=== PATIENT | male | born 1950 | race African-American/Black ===

== ENCOUNTER → 2020-06-10 13:38 | Outpatient (CLI) | payer MEDICARE, SELFPAY ==
--- NOTE | ~2020-06-10 | MR_ITS ---
EXAMINATION: MR lumbar spine wo con DATE: 06/10/2020 14:11 INDICATION: Low back pain. TECHNIQUE: Magnetic resonance imaging (MRI) of the lumbar spine was performed without intravenous con trast. Sequences included sagittal T2-weighted FSE, sagittal T2-weighted FS FSE, sagittal T1-weighted FSE, and axial T2-weighted FSE. COMPARISON: Lumbar spine MRI 03/21/2014 FINDINGS: There is 8 degrees levocurvature of lumbar spine. There is 3 mm retrolisthesis of L2 on L3, L3 on L4, L4 on L5, and L5 on S1. Vertebral body heights are normal. There is moderately decreased d isc height at L1-L2 and severely decreased disc height from L2-L3 through L5-S1. The distal spinal co rd signal intensity is normal. The conus medullaris is at T12-L1. The following disc levels are speci fically discussed: L1-L2: The disc is bulging and has an annular fissure. There is moderate bilateral facet joint osteoa rthritis. There is mild bilateral neural foraminal stenosis. There is mild central canal stenosis. L2-L3: The disc is bulging and has an annular fissure. There is severe bilateral facet joint osteoart hritis. There is moderate bilateral neural foraminal stenosis. There is mild central canal stenosis. L3-L4: The disc is bulging and has an annular fissure. There is severe bilateral facet joint osteoart hritis. There is moderate bilateral neural foraminal stenosis. There is mild central canal stenosis. L4-L5: The disc is bulging and has an annular fissure. There is mild right and severe left facet join t osteoarthritis. There is moderate bilateral neural foraminal stenosis. There is mild central canal stenosis. L5-S1: The disc is bulging and has an annular fissure. There is severe bilateral facet joint osteoart hritis. There is moderate bilateral neural foraminal stenosis. There is mild central canal stenosis. IMPRESSION: 1. Severe lumbar spondylosis, mildly worsened from 03/21/2014. Reviewed, dictated and finalized at location A. CH INSTRUCTOR
== END ==
PROVIDERS: PCP Internal Medicine; Visit Provider Orthopaedic Surgery
DX: M47.896 Other spondylosis, lumbar region (principal)
CPT/HCPCS: 72148

== ENCOUNTER 2022-01-01 14:57 | Emergency (ER) | payer MEDICARE, SELFPAY ==
--- NOTE | ~2022-01-01 | XR_ITS ---
EXAMINATION: XR chest 2V Exam Date/Time: 01/01/2022 16:08 CDT HISTORY: CHEST TIGHTNESS, FATIGUE, COUGH, HEADACHE X 2 DAYS Comparison: 01/22/2019. RESULT: Lines, tubes, and devices: Cervical fusion hardware. Lungs and pleura: Stable chronic mild peribronchial cuffing, scattered reticular nodular opacities. No focal consolidation Cardiomediastinal silhouette: Stable. Other: No acute osseous or upper abdominal finding. IMPRESSION: Pulmonary opacities may reflect senescent change and/or chronic respiratory bronchiolitis. Reviewed, dictated and finalized at location K. IMPRESSION: Pulmonary opacities may reflect senescent change and/or chronic respiratory bro nchiolitis.
[2022-01-01 15:14] VITALS: BP 189/93; PULSE 85; RESP 16; TEMP 36.8; O2SAT 98
--- NOTE | 2022-01-01 15:37 | ED.HA ---
HPI - Headache General Chief Complaint: Headache Stated Complaint: chest pain Time Seen by Provider: 01/01/22 15:37 Source: patient Mode of arrival: ambulatory Limitations: no limitations History of Present Illness HPI Narrative: The patient is a 71-year-old male with a history of hypertension, hyperlipidemia presenting to the emergency department for evaluation of headache, chest pain, general malaise. Patient states that he was diagnosed with COVID 3 weeks ago, did not require hospitalization with his illness. Patient reports mild frontal headache intermittently over the past week as well as pain in his chest when he takes a deep breath. He denies any current chest pain at the time of assessment. States pain has been ongoing over the past two weeks. He reports productive cough without hemoptysis. He denies current shortness of breath, wheezing. He denies leg swelling or calf pain. Patient takes a daily aspirin, denies other anticoagulation. He denies palpitations, pain in his jaw, shoulder, back. Patient did take a Tylenol for his headache pain which helped resolve his headache. States that he has felt generally unwell over the past week, thus prompting his visit here to the emergency department. Related Data Allergies Allergy/AdvReac Type Severity Reaction Status Date / Time iodine Allergy Unknown Rash Verified 01/01/22 16:34 codeine AdvReac Mild Nausea and Verified 01/01/22 16:34 Vomiting Review of Systems Review of Systems: CONSTITUTIONAL: Denies fever, chills, or sweats. EYES: Denies visual changes, redness, or discharge. ENT: Reports mild rhinorrhea, congestion, denies sore throat or otalgia CARDIOVASCULAR: Denies current chest pain, palpitations, or edema. RESPIRATORY: Reports productive cough without shortness of breath GASTROINTESTINAL: Denies abdominal pain, nausea, vomiting, or diarrhea. GENITOURINARY: Denies dysuria or hematuria. SKIN: Denies rash or itching. MUSCULOSKELETAL: Denies back pain, joint pain, or myalgia. NEUROLOGIC: Reports headache without numbness, or weakness. [facility] Social History Social History (Updated 01/01/22 @ 15:54 by Kaye Lopez MD) Smoking status: Never smoker Alcohol intake: current Alcohol use details: Social, rare Substance use: never Living arrangements: with family Gender identity (if verbalized by the patient): Male Exam Narrative: GENERAL: Awake, alert, conversant HEAD: Normocephalic, atraumatic. EYES: PERRLA and EOMI. ENT: Nares clear, no rhinorrhea or epistaxis. Mucous membranes moist. NECK: Supple. CHEST: No respiratory distress, breathing even and non labored HEART: Regular rate, sinus rhythm ABDOMEN:Non distended, non tender EXTREMITIES: Normal range of motion. No edema. SKIN: Warm, dry, no rash. NEURO:No focal deficits. Alert and oriented x3. Finger to nose intact bilaterally. EOMs intact without nystagmus. No facial droop/asymmetry noted bilaterally. Grimace intact. Intact sensation in face. Hearing intact bilaterally. Shoulder shrug intact. Strength 5/5 bilateral upper extremities. Strength 5/5 bilateral lower extremities. Ambulatory with a narrow base, steady gait, no ataxia. Course Vital Signs Vital signs: Vital Signs Temperature 36.8 C 01/01/22 15:14 Pulse Rate 85 01/01/22 15:14 Respiratory Rate 16 01/01/22 15:14 Blood Pressure 189/93 H 01/01/22 15:14 Pulse Oximetry 98 01/01/22 15:14 Oxygen Delivery Room Air 01/01/22 15:14 Temperature 36.8 C 01/01/22 15:14 Pulse Rate 85 01/01/22 15:14 Respiratory Rate 16 01/01/22 15:14 Blood Pressure 189/93 H 01/01/22 15:14 Pulse Oximetry 98 01/01/22 15:14 Oxygen Delivery Room Air 01/01/22 15:14 MDM - Headache MDM Narrative Medical decision making narrative: Patient presenting to the emergency for evaluation of headache, pleuritic chest pain without any chest pain at the time of assessment. Patient is hypertensive, and this did normalize while
--- NOTE | 2022-01-01 15:48 | ECG_ITS ---
Measurements Intervals [place] Rate: 71 P: TX: 0 QRS: 20 QRSD: 96 T: 19 QT: 373 QTc: 408 Interpretive Statements SINUS RHYTHM WITH FREQUENT PACS OTHERWISE WITHIN NORMAL LIMITS ABNORMAL RHYTHM ECG NO PREVIOUS ECG AVAILABLE FOR COMPARISON Electronically Signed On 01-02-2022 16:50:43 CDT by Davey Barreto M.D.
[2022-01-01 16:03] LABS: Basophils Absolute Auto 0.1 K/mm3 (0.0-0.1); Basophils Percent Auto 0.7 % (0.2-1.2); Eosinophils Absolute Auto 0.3 K/mm3 (0-0.3); Eosinophils Percent Auto 3.1 % (0-4.4); Hematocrit 42.4 % (42.0-52.0); Hemoglobin 14.2 g/dL (14.0-18.0); Immature Granulocyte Absolute 0.02 K/mm3 (0.00-0.031); Immature Granulocyte Percent A 0.2 % (0-0.5); Lymphocytes Absolute Auto 1.77 K/mm3 (0.9-3.2); Lymphocytes Percent Auto 19.3 % (18.3-44.2); Mean Corpuscular HGB Conc 33.5 g/dl (32-36); Mean Corpuscular Hemoglobin 30.1 pg (26-34); Mean Corpuscular Volume 89.8 fl (80-100); Mean Platelet Volume 11.3 fl (7.4-10.4); Monocytes Percent Auto 10.5 % (2.6-8.5); Neutrophils Absolute Auto 6.1 K/mm3 (1.3-6.7); Neutrophils Percent Auto 66.2 % (45.5-73.1); Platelet Count Result 201 k/mm3 (150-375); Red Blood Count 4.72 M/mm3 (4.6-6.20); Red Cell Distribution Width 13.9 % (11.5-14.5); White Blood Count 9.2 K/mm3 (4.5-10.0)
[2022-01-01 16:12] LABS: Anion Gap 10 mmol/L (8-16); Blood Urea Nitrogen 20 mg/dL (9-20); Calcium 9.2 mg/dL (8.4-10.2); Carbon Dioxide 26 mmol/L (22-30); Chloride 103 mmol/L (98-107); Estimated CRCL calculation 76 ml/min; Estimated Glomerular Filt Rate > 60; Glucose 93 mg/dL (65-110); Potassium 4.3 mmol/L (3.4-5.0); Sodium 139 mmol/L (137-145)
[2022-01-01 16:24] LABS: Troponin I < 0.012 ng/mL (0.000-0.034)
[2022-01-01 16:25] LABS: D Dimer 0.49 ug/mL (<0.48)
[2022-01-01 16:33] LABS: Appearance Urine Clear (Clear); Bilirubin Urine 1+ (Negative); Blood Urine Negative (Negative); Color Urine Yellow (Yellow); Glucose Urine UA Negative (Negative); Ketones Urine Negative (Negative); Leukocyte Esterase Ur Negative LEU/UL (Negative); Nitrate Urine Negative (Negative); Protein Urine Negative (Negative); Specific Grav Ur 1.025 (1.001-1.035); pH Urine 5.5 (5.0-9.0)
[2022-01-01] MEDS: diphenhydrAMINE HCl INJ 50 MG/ML VIAL 25 MG IV PUSH (16:35)
[2022-01-01] MEDS: ACETAMINOPHEN 500 MG TABLET 1000 MG PO (16:35)
[2022-01-01] MEDS: SODIUM CHLORIDE 0.9% IV 1,000 ML 999 ML IV CONT (16:42)
[2022-01-01 16:53] LABS: Mucus Urine Rare /lpf; RBC Urine 0-2 /hpf (0-2); WBC Urine 0-3 /hpf
[2022-01-01 17:00] LABS: Add Urine Microscopic? YES
[2022-01-01 17:51] VITALS: BP 167/94; PULSE 77; RESP 16; O2SAT 98
== END 2022-01-01 18:01 | disposition home or self-care (01) ==
PROVIDERS: Emergency Provider Emergency Medicine; PCP Internal Medicine
DX: G44.209 Tension-type headache, unspecified, not intractable (principal); Z86.16 Personal history of COVID-19; I49.1 Atrial premature depolarization
CPT/HCPCS: 36415; 71046; 80048; 81001; 84484; 85025; 85380; 93005; 96361; 96374; 96375; 99284; A9270; J1100; J1200; J7030

== ENCOUNTER 2023-04-04 00:57 | Day surgery (SDC) | payer MEDICARE, SELFPAY ==
[2023-03-16 13:44] VITALS: BMI 29.5
--- NOTE | 2023-04-02 10:01 | SUR.PREOP ---
Patient called regarding upcoming procedure. Patient did not answer- message left with arrival time.
--- NOTE | 2023-04-02 10:03 | SUR.PREOP ---
Patient called back. Reviewed preop instructions, appointment times, and procedure prep.
--- NOTE | 2023-04-03 16:31 | PM.HPGS ---
History of Present Illness History of Present Illness Consent: Risks, benefits, and alternatives have been discussed and questions answered. Patient agrees to proceed with procedure. Chief complaint: neoplasm screening Narrative: Radu Piedra is a 72 year old male referred for colon cancer screening. Review of Systems Review of Systems: All systems reviewed & are unremarkable except as noted in HPI and below PMFSH Social History Social History Smoking packs per day: 1 Smoking cigarettes per day: 20.0 Years smoked: 20 Smoking pack-years: 20.00 Smoking status: Former smoker Tobacco type: cigarettes Alcohol intake: current Drinks per week: 1 Alcohol use details: Social, rare Substance use: never Substance use type: does not use Living arrangements: with family Gender identity (if verbalized by the patient): Male Spiritual care concerns: No Meds Home Medications and Allergies Home Medications Medication Instructions Recorded Confirmed Type acetaminophen 500 mg capsule 500 mg PO Q6H PRN fever or pain 01/01/22 04/04/23 Rx #30 caps ibuprofen 400 mg tablet 400 mg PO TID PRN fever or pain 01/01/22 04/04/23 Rx days #30 tabs amlodipine 5 mg tablet 5 mg PO DAILY 03/16/23 04/04/23 History aspirin 325 mg capsule 325 mg PO DAILY 03/16/23 04/04/23 History atorvastatin 20 mg tablet 20 mg PO DAILY 03/16/23 04/04/23 History azilsartan medoxomil 80 mg tablet 80 mg PO DAILY 03/16/23 04/04/23 History (Edarbi) chlorthalidone 25 mg tablet 25 mg PO DAILY 03/16/23 04/04/23 History metoprolol tartrate 25 mg tablet 25 mg PO BID 03/16/23 04/04/23 History Allergies Allergy/AdvReac Type Severity Reaction Status Date / Time iodine Allergy Unknown Rash Verified 04/04/23 08:04 codeine AdvReac Mild Nausea and Verified 04/04/23 08:04 Vomiting Exam Resp: Auscultation: clear to auscultation bilaterally Cardio: Rate: regular rate Rhythm: regular rhythm GI: GI Palp: Yes Soft to palpation and No Tenderness to palpation present (GI) Assessment and Plan Assessment and plan (1) Colon cancer screening: Code(s): Z12.11 - Encounter for screening for malignant neoplasm of colon Status: Acute Assessment and Plan: Colonoscopy with possible biopsy or polypectomy or cautery or injection of substances.
[2023-04-04 08:07] VITALS: BP 146/71; PULSE 58; RESP 16; TEMP 36.9; O2SAT 99
[2023-04-04] MEDS: LACTATED RINGERS 1,000 ML 150 ML IV CONT (08:18)
--- NOTE | 2023-04-04 08:57 | WPDANESEPPF ---
Anes - Initial Pre Proc Eval Procedure: Operation Date: 04/04/23 09:30 Proposed Procedures p Screening Colonoscopy - Jono Childress MD Date/Time: 04/04/23 08:57 Surgeon: Jono Childress MD Pre Op Diagnosis: neoplasm screening Patient Data Age: 72 Gender: M Height: 1.93 m Weight: 107.5 kg Last Vital Signs Temp 98.5 F 04/04/23 08:07 Pulse 58 L 04/04/23 08:07 Resp 16 04/04/23 08:07 BP 146/71 H 04/04/23 08:07 Pulse Ox 99 04/04/23 08:07 O2 Del Method Room Air 04/04/23 08:07 Allergies Allergy/AdvReac Type Severity Reaction Status Date / Time iodine Allergy Unknown Rash Verified 04/04/23 08:04 codeine AdvReac Mild Nausea and Verified 04/04/23 08:04 Vomiting Home Medications Medication Instructions Recorded Confirmed Type acetaminophen 500 mg capsule 500 mg PO Q6H PRN fever or pain 01/01/22 04/04/23 Rx #30 caps ibuprofen 400 mg tablet 400 mg PO TID PRN fever or pain 01/01/22 04/04/23 Rx days #30 tabs amlodipine 5 mg tablet 5 mg PO DAILY 03/16/23 04/04/23 History aspirin 325 mg capsule 325 mg PO DAILY 03/16/23 04/04/23 History atorvastatin 20 mg tablet 20 mg PO DAILY 03/16/23 04/04/23 History azilsartan medoxomil 80 mg tablet 80 mg PO DAILY 03/16/23 04/04/23 History (Edarbi) chlorthalidone 25 mg tablet 25 mg PO DAILY 03/16/23 04/04/23 History metoprolol tartrate 25 mg tablet 25 mg PO BID 03/16/23 04/04/23 History Patient hx anesthesia problems: none Family hx anesthesia problems: none Results Review: All pre-operative results and documents have been reviewed as part of the pre-operative evaluation. [facility] Social History Social History Smoking packs per day: 1 Smoking cigarettes per day: 20.0 Years smoked: 20 Smoking pack-years: 20.00 Smoking status: Former smoker Tobacco type: cigarettes Alcohol intake: current Drinks per week: 1 Alcohol use details: Social, rare Substance use: never Substance use type: does not use Living arrangements: with family Gender identity (if verbalized by the patient): Male Spiritual care concerns: No Anes - Eval Final PreProcedure Day of Procedure 04/04/23 08:57 Patient weight: normal Heart: regular rate and rhythm Lungs: clear to auscultation Airway: Mallampati scale class II Neurological: alert and oriented Last oral intake: >/= 8 hours ASA classification: III Emergent: no Anesthetic plan: proceed Anesthesia type and monitoring: general GIVS and standard monitoring Results Review: All pre-operative results and documents have been reviewed as part of the pre-operative evaluation. Informed Consent: The patient's anesthetic plan and its attendant risks and benefits were discussed with the patient/family/POA. Questions were solicited and answers provided to the satisfaction of the patient/family/POA.
[2023-04-04 09:19] VITALS: BP 83/60; PULSE 64; RESP 16; O2SAT 95
[2023-04-04 09:29] VITALS: BP 120/64; PULSE 54; RESP 18; O2SAT 96
[2023-04-04 09:39] VITALS: BP 117/69; PULSE 56; RESP 18; O2SAT 100
== END 2023-04-04 09:54 | disposition home or self-care (01) ==
PROVIDERS: PCP Internal Medicine; Visit Provider Internal Medicine Gastroenterology
PROC: 0DJD8ZZ Inspection of Lower Intestinal Tract, Via Natural or Artificial Opening Endoscopic (ICD-10-PCS; CPT 45378; principal; 2023-04-04 09:30)
DX: Z12.11 Encounter for screening for malignant neoplasm of colon (principal); K57.30 Diverticulosis of large intestine without perforation or abscess without bleeding; K64.8 Other hemorrhoids; Z87.891 Personal history of nicotine dependence
CPT/HCPCS: G0121; J2704; J7120

== ENCOUNTER 2023-06-01 10:32 | Emergency (ER) | payer MEDICARE, SELFPAY ==
--- NOTE | ~2023-06-01 | XR_ITS ---
EXAMINATION: XR chest 2V 06/01/2023 12:30 INDICATION: Chest pain and cough PROCEDURE: 2 view chest COMPARISON: 01/01/2022 FINDINGS: The lungs are clear. The cardiomediastinal silhouette is within normal limits. There are no pleural effusions. There is no pneumothorax suspected. IMPRESSION: 1: NO ACUTE CARDIOPULMONARY DISEASE. Reviewed, dictated and finalized at location B. RER/GRADE CHECK
--- NOTE | 2023-06-01 10:34 | ECG_ITS ---
Measurements Intervals [place] Rate: 56 P: 44 MA: 178 QRS: 50 QRSD: 97 T: 56 QT: 397 QTc: 383 Interpretive Statements SINUS BRADYCARDIA INCOMPLETE RIGHT BUNDLE BRANCH BLOCK BORDERLINE ECG COMPARED TO ECG 01/01/2022 15:54:45 SINUS BRADYCARDIA NOW PRESENT Electronically Signed On 06-01-2023 15:58:21 [employer] by Serge Lozoya D.O.
[2023-06-01 10:39] VITALS: BP 144/84; PULSE 65; RESP 18; TEMP 36.6; O2SAT 99
[2023-06-01 10:54] LABS: Basophils Absolute Auto 0.1 K/mm3 (0.0-0.1); Basophils Percent Auto 0.8 % (0.2-1.2); Eosinophils Absolute Auto 0.3 K/mm3 (0-0.3); Eosinophils Percent Auto 5.6 % (0-4.4); Hematocrit 37.7 % (42.0-52.0); Hemoglobin 12.4 g/dL (14.0-18.0); Immature Granulocyte Absolute 0.01 K/mm3 (0.00-0.031); Immature Granulocyte Percent A 0.2 % (0-0.5); Lymphocytes Absolute Auto 1.65 K/mm3 (0.9-3.2); Lymphocytes Percent Auto 27.4 % (18.3-44.2); Mean Corpuscular HGB Conc 32.9 g/dl (32-36); Mean Corpuscular Volume 88.1 fl (80-100); Mean Platelet Volume 10.7 fl (7.4-10.4); Monocytes Absolute Auto 0.4 K/mm3 (0.1-0.6); Monocytes Percent Auto 6.3 % (2.6-8.5); Neutrophils Absolute Auto 3.6 K/mm3 (1.3-6.7); Neutrophils Percent Auto 59.7 % (45.5-73.1); Platelet Count Result 237 k/mm3 (150-375); Red Blood Count 4.28 M/mm3 (4.6-6.20); Red Cell Distribution Width 13.2 % (11.5-14.5)
--- NOTE | 2023-06-01 10:58 | ED.CHESTPAIN ---
HPI - Chest Pain General Chief Complaint: Chest Pain Stated Complaint: chest tightness, cough and stuffy head Time Seen by Provider: 06/01/23 10:48 Source: patient Mode of arrival: ambulatory Limitations: no limitations History of Present Illness HPI narrative: Radu is a 72-year-old male patient presenting to the clinic today with complaints chest tightness, cough, and stuffy head x1 week. He reports he went to [place] urgent care on Sunday and they diagnosed with bronchitis and gave him azithromycin. He reports that he is on the last day of azithromycin and his symptoms are not improving. He denies any chest pain but does state he has got some chest tightness, cough, and stuffiness. No known fever or chills. Related Data Home Medications Medication Instructions Recorded Confirmed amlodipine 5 mg tablet 5 mg PO DAILY 03/16/23 06/01/23 aspirin 325 mg capsule 325 mg PO DAILY 03/16/23 06/01/23 atorvastatin 20 mg tablet 20 mg PO DAILY 03/16/23 06/01/23 azilsartan medoxomil 80 mg tablet 80 mg PO DAILY 03/16/23 06/01/23 (Edarbi) chlorthalidone 25 mg tablet 25 mg PO DAILY 03/16/23 06/01/23 metoprolol tartrate 25 mg tablet 25 mg PO BID 03/16/23 06/01/23 Allergies Allergy/AdvReac Type Severity Reaction Status Date / Time iodine Allergy Unknown Rash Verified 06/01/23 11:18 codeine AdvReac Mild Nausea and Verified 06/01/23 11:18 Vomiting Review of Systems Review of Systems: Pertinent positives per HPI. Patient denies any fever, chills, rash, headache, visual changes, dizziness, runny nose, sore throat,chest pain, palpitations, nausea, vomiting, diarrhea, constipation, abdominal pain, or any urinary issues. [facility] Social History Social History Smoking packs per day: 1 Smoking cigarettes per day: 20.0 Years smoked: 20 Smoking pack-years: 20.00 Smoking status: Former smoker Tobacco type: cigarettes Alcohol intake: current Drinks per week: 1 Alcohol use details: Social, rare Substance use: never Substance use type: does not use Living arrangements: with family Gender identity (if verbalized by the patient): Male Spiritual care concerns: No Comments At the time of my signature, I reviewed and agree with the nursing past medical, surgical, social, and family history. There is no relevant family history pertinent to the patient complaint. Course Course Emergency Course: Portions of this record may have been created with voice recognition software. Vital Signs Vital signs: Vital Signs Temperature 36.6 C 06/01/23 10:39 Pulse Rate 65 06/01/23 10:39 Respiratory Rate 18 06/01/23 10:39 Blood Pressure 144/84 H 06/01/23 10:39 Pulse Oximetry 99 06/01/23 10:39 Oxygen Delivery Room Air 06/01/23 10:39 Temperature 36.6 C 06/01/23 10:39 Pulse Rate 60 06/01/23 14:28 Respiratory Rate 16 06/01/23 14:28 Blood Pressure 125/80 06/01/23 14:28 Pulse Oximetry 99 06/01/23 14:28 Oxygen Delivery Room Air 06/01/23 10:39 Vital signs reviewed MDM - Chest Pain MDM Narrative Medical decision making narrative: At the time of visit patient is resting comfortably on the exam table. Patient appears to be nontoxic. Labs: CBC shows white blood cell count 6, H and H is 12.4 and 37.7, platelet counts 237, anti coagulation studies are negative, chemistry shows sodium level 139, potassium of 4.4, chloride 106, carbon dioxide 24, BUN is 38 creatinine 1.5 with a GFR greater than 56, glucose is 167, alk phos 109, ALT is 26, AST 36, troponin is negative, lipase 67, COVID, flu, RSV testing was completed. RSV test was positive COVID and influenza were negative. Diagnostics: Chest x-ray shows no acute cardiopulmonary process. Plan: I suspect patient has RSV bronchitis. Patient also has some anemia and elevated BUN and creatinine. Recommend follow-up with his PCP this week for further evaluation. Will send in prescription
[2023-06-01 11:05] LABS: Prothrombin Time 13.3 Seconds (11.1-14.7)
[2023-06-01 11:10] VITALS: BP 126/83; PULSE 59; RESP 16; O2SAT 100
[2023-06-01 11:11] LABS: Alanine Aminotransferase 26 U/L (6-50); Albumin Level 3.9 g/dL (3.5-5.1); Alkaline Phosphatase 108 U/L (38-126); Anion Gap 9 mmol/L (8-16); Aspartate Amino Transferase 36 U/L (17-59); Bilirubin,Total 0.7 mg/dL (0.2-1.3); Blood Urea Nitrogen 38 mg/dL (9-20); Calcium 8.8 mg/dL (8.4-10.2); Carbon Dioxide 24 mmol/L (22-30); Chloride 106 mmol/L (98-107); Estimated CRCL calculation 51 ml/min; Estimated Glomerular Filt Rate 56; Glucose 167 mg/dL (65-110); Lipase 67 U/L (23-300); Potassium 4.4 mmol/L (3.4-5.0); Sodium 139 mmol/L (137-145)
[2023-06-01 11:22] LABS: Troponin I < 0.012 ng/mL (0.000-0.034)
[2023-06-01 12:00] LABS: Influenza A QL RT-PCR Negative (Negative); Influenza B QL RT-PCR Negative (Negative); RSV RNA, RT-PCR Positive (Negative); SARS-CoV-2 RNA PCR Negative (Negative)
[2023-06-01 14:28] VITALS: BP 125/80; PULSE 60; RESP 16; O2SAT 99
== END 2023-06-01 14:30 | disposition home or self-care (01) ==
PROVIDERS: Emergency Medicine; Emergency Provider Nurse Practitioner Family; PCP Internal Medicine
DX: J20.5 Acute bronchitis due to respiratory syncytial virus (principal); Z87.891 Personal history of nicotine dependence; Z79.82 Long term (current) use of aspirin; R00.1 Bradycardia, unspecified; I45.10 Unspecified right bundle-branch block
CPT/HCPCS: 36415; 71046; 80053; 83690; 84484; 85025; 85610; 85730; 87637; 93005; 99284

== ENCOUNTER 2024-07-15 13:28 | Outpatient (CLI) | payer MEDICARE, SELFPAY ==
--- NOTE | ~2024-07-15 | PE_ITS ---
EXAMINATION: PET_PETPSMAST_PT DATE: 07/15/2024 15:31 INDICATION: Prostate cancer. TECHNIQUE: 5.145 mCi of Ga-68 gozetotide was administered intravenously. Low dose computed tomography (CT) images were acquired from the base of the brain to the proximal thighs for attenuation correcti on and anatomic localization. Automated exposure control was employed. Dose-length product (DLP) was 1331 mGy-cm. Positron emission tomography (PET) images were acquired in the same distribution. COMPARISON: None FINDINGS: Head/neck: There are no pathologically enlarged lymph nodes. There are changes of anterior fusion pro cedure in cervical spine. Chest: There are pleural plaques bilaterally, which may be seen with asbestos exposure. There is mild atelectasis in lingula. No pleural effusion. The heart size is normal. There are coronary artery pipe cifications. No pericardial effusion. There is bilateral gynecomastia. Abdomen/pelvis/proximal thighs: The liver, gallbladder, spleen, pancreas, and right adrenal gland are normal. There is a 14 mm mass in left adrenal gland without increased activity, likely an adenoma in the absence of known malignancy other than prostate cancer. There are cysts in right kidney measurin g up to 2.8 cm. Left kidney is normal. There is diverticulosis of the colon without evidence of diver ticulitis. There are no dilated loops of bowel. The appendix is normal. There are no pathologically e nlarged lymph nodes. There is no free intraperitoneal fluid. The prostate is mildly enlarged. There i s increased activity in the prostate with maximum SUV of 8.0. There is a stent in right superficial f emoral artery. There is no osseous malignancy. IMPRESSION: 1. Mildly enlarged prostate with increased activity, consistent with primary malignancy. No evidence of metastatic disease. Reviewed, dictated and finalized at location B. IMPRESSION: 1. Mildly enlarged prostate with increased activity, consistent with primary ma lignancy. No evidence of metastatic disease.
--- OUTSIDE RECORDS SUMMARY | 2024-07-15 15:01 | XMS_ITS | Clinical Summary ---
Author Organization [facility] Address [address] [place] [id number] Care Team Providers Care Founder President And Ceo Name Role Phone Unavailable Primary Care Provider Unavailabl e Social History Tobacco Use Types Packs/Day Years Used Date Smoking Tobacco: Never Assessed Sex and Gender Information Value Date Recorded Sex Assigned at Not on file Legal Sex Male 6:36 PM CDT Gender Identity Not on file Sexual Orientation Not on file Last Filed Vital Signs Vital Sign Reading Time Taken Comments Blood Pressure 160/94 12/28/2016 3:24 PM CDT Pulse 73 12/28/2016 3:24 PM CDT Temperature - - Respiratory Rate - - Oxygen Saturation - - Inhaled Oxygen Concentration - - Weight 106.6 kg (235 lb) 04/20/2016 3:28 PM [employer] Height 193 cm (6' 4 ) 04/20/2016 3:28 PM [employer] Body Mass Index 28.61 04/20/2016 3:28 PM [employer] Plan of Treatment Upcoming Encounters Date Type Department Care Team (Late st Contact Info) Description 08/05/2024 10:00 AM CDT Office Visit [facility] [place] [address] [place] [address] Davey Fink, PAJenaC [address] [place] [address] Health Maintenance Due Date Last Done Comments Colorectal Cancer Screening Colonoscopy (10 Years) 1952 Hepatitis C 1970 Zoster Vaccines (1 of 2) 2002 Annual Medicare Wellness Visit 2017 Pneumococcal Vaccine: 65+ Ye ars (1 of 1 - PCV) 2017 COVID-19 Vaccine ( - 2023-2 5 season) 2024 Influenza Adult (#1) 2024 RSV Immunization or 60+ Years (1 - 1-dose 75+ series) 12/04/2027 DTaP, Tdap and Td Vaccines ( 2 - Td or Tdap) 07/18/2029 07/19/2019 Meningococcal B Vaccine Aged Out No l onger eligible based on patient's age to complete this topic Meningococcal Vaccine Aged Out No boby magdiel eligible based on patient's age to complete this topic RSV Immunizations Under 20 Months Aged Out No longer eligible based on patient's age to complete this topic Insurance
--- OUTSIDE RECORDS SUMMARY | 2024-07-15 15:01 | XMS_ITS | Referral Summary ---
Author Organization [facility] Address [address] [address] Care Team Providers Care Cement Mason Name Role Phone Nish Martin MD Primary Care Provider + [phone] Payam Stanton MD Unavailable [phone] Chela Heaton MD Unavailable [phone] Faby Rodriguez RN Unavailable [phone] Source Comments [facility],non-owned Affiliates and Associated Physician Practices is amultiple site organization consisting of ambulatory clinics and hospital sitesin [place], [place], [place] and [place]. This disclosure is being madepursuant to the Care Everywhere program and may not contain all information available regarding this patient. Last updated 18.[facility] Allergies Active Allergy Reactions Criticality Noted Date Comments Codeine Nausea and/or Vomiting 08/06/2013 Povidone Iodine Anaphylaxis High 09/09/2013 Latex Rash Low 08/06/2013 Etodolac 08/06/2013 Shellfish Allergy Anaphylaxis High 09/09/2013 Medications * Be aware that medications may not be up to date on this document. Alwaysverify current medications with the patient. Medication Sig Dispensed Refills Start Date End Date Status aspirin 325 MG tablet Act ronald valsartan (DIOVAN) 320 MG tablet Take 320 mg by mouth at bedtime. Active atorvastatin (LIPITOR) 20 MG tablet Take 20 mg by mouth at bedtime. Active hydrocodone-acetaminoph en (NORCO) 5-325 MG tablet Take 1 Tab by mouth every 4 hours as needed. 40 Tab 1 09/10/2013 Active methocarbamol (ROBAXIN) 750 MG tablet Take 1 Tab by mouth 4 times daily. 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 Cervical spondylosis without myelopathy 08/07/19 14 Social History Tobacco Use Types Packs/Day Years Used Date Smoking Tobacco: Former Cigarettes Q uit: 05/07/2006 Smokeless Tobacco: Never Alcohol Use Standard Drinks/Week Comments Yes 0 (1 standard drink = 0.6 oz pur e alcohol) 3 MONTHLY Sex and Gender Information Value Date Recorded Sex Assigned at Not on file Gender Identity Not on file Sexual Orientation Not on file Last Filed Vital Signs Vital Sign Reading Time Taken Comments Blood Pressure 138/82 09/10/2013 8:35 AM CDT Pulse 74 09/10/2013 8:35 AM CDT Temperature 36.6 C (97.8 F) 09/10/2013 8:35 AM CDT Respiratory Rate 18 09/10/2013 8:35 AM CDT Oxygen Saturation 99% 09/10/2013 8:35 AM CDT Inhaled Oxygen Concentration - - Weight 108.9 kg (240 lb) 04/06/2014 10:16 AM HOP GROWER Height 190.5 cm (6' 3 ) 04/06/2014 10:16 AM HOP GROWER Body Mass Index 30 04/06/2014 10:16 AM HOP GROWER Functional Status Functional Status Response Date of Assess ment Is person deaf or have serious hearing difficult y? No 09/09/2013 Is person blind or have serious difficulty seein g? No 09/09/2013 Does person have serious dif ficulty walking/climbing stairs? No 09/09/2013 Does person have difficulty dressing/bathing? No 09/09/2013 Does person have difficulty doing errands alone? No 09/09/2013 Cognitive Status Response Date of Assessm ent Does person have difficulty concentrating/remembering/making decisions? No 09/09/2013 Plan of Treatment Not on file Medical Devices Implanted Type Area Eye Specialist Device Identifier Shelf Expiration Date Model / Serial / Lot Dale Maradiaga Dbm Jar 2.0cc Implanted:Qty : 1 on 09/09/2013 by Vignesh Mendoza MD at [facility] N/A: Spine Cervical [employer] 01/28/2016 [id number] / / [id number] Space Peek 6 X 16 X 14mm Implanted:Qty : 1 on 09/09/2013 by Vignesh Mendoza MD at [facility] N/A: Spine Cervical [employer] 03/27/2021 [id number] / / [id number] Space Peek 6 X 16 X 14mm Implanted:Qty : 1 on 09/09/2013 by Vignesh Mendoza MD at [facility] N/A: Spine Cervical [employer] 04/15/2021 [id number] / / [id number] Space Peek 5 X 16 X 14mm Implanted:Qty : 1 on 09/09/2013 by Vignesh Mendoza MD at [facility] N/A: Spine Cervical [employer] 03/17/2021 [id number] / / [id number] Plate Ant Cerv Assem 62.5mm Implanted:Qty : 1 on 09/09/2013 by Vignesh Mendoza MD at [facility] N/A: Spine Cervical [employer]onic [employer] [id number] / / [id number] Self Drill New 4.0 X 17 Implanted:Qty : 8 on 09/09/2013 by Vignesh Mendoza MD at [facility] N/A: Spine Cervical Med[employer] Sof[employer]or [employer] Spine [id number] / / Advance Directives * Full Code (Latest Code Status on File) Date Activated Date Inactivated Comments 09/09/2013 1:00 PM 09/10/2013 1:05 PM Care Teams Cement Mason Relationship Specialty Start Date End Date Nish Martin MD [address] [id number] PCP - General Internal Medicine 06/12/13 Payam Stanton MD [address] [place] [phone] Orthopedic Surgery 08/06/13 Chela Heaton MD [address] [place] [id number] Cardiology 08/06/13 Faby Rodriguez RN Elderly Caregiver 09/10/13
--- OUTSIDE RECORDS SUMMARY | 2024-07-15 15:01 | XMS_ITS | Data Portability ---
Author Organization [facility] [employer], Main Office Address [address] [place] [address] Care Team Providers Care Erp Pm Name Role Phone LÓPEZ IGLESIAS Primary Care Provider [phone] LÓPEZ IGLESIAS Referring Provider Assessment No assessment recorded. Plan of Treatment Reminders Order Date Submit Date Provider Last Modified By Organization Details Last Modified Time Details Appointments Any 15 2024 11:30A M López Iglesias MD Not available Not available Not available Lab glycohemo globin, total, blood 2023 [facility] (Lab), [address] [place], [address], 03/04/2024 20:35:09 PSA, serum or plasma [address] (Lab), [address] [place], [address], 03/10/2024 08:31:52 unlisted lab - CBC study [address] (Lab), [address] [place], [address], 03/10/2024 08:31:46 urinalysi s, complete [address] (Lab), [address] [place], [address], 03/10/2024 08:31:52 CMP, serum or plasma 2023 024 [facility] (Lab), [address] [place], [address], 03/04/2024 19:57:52 lipid panel, serum 2023 024 [facility] (Lab), [address] [place], [address], 03/04/2024 19:57:57 glycohemo globin, total, blood [address] (Lab), [address] [place], [address], 08/13/2023 08:27:41 PSA, serum or plasma [address] (Lab), [address] [place], [address], 08/13/2023 08:27:40 unlisted lab - CBC study [address] (Lab), [address] [place], [address], 08/13/2023 08:27:40 urinalysi s, complete [address] (Lab), [address] [place], [address], 08/13/2023 08:27:40 CMP, serum or plasma [address] (Lab), [address] [place], [address], 08/13/2023 08:27:40 lipid panel, serum [address] (Lab), [address] [place], [address], 08/13/2023 08:27:40 Referral None recorded. Procedures None recorded. Surgeries excision of lipoma (SURG) 2023 024 [email or web address] Not available 05/14/2023 17:16:23 Imaging None recorded. Medication Orders metoprolo l tartrate 50 mg tablet 2023 024 [id number], [address], [place], [id number], 02/25/2024 12:38:33 atorvasta tin 20 mg tablet 2023 024 replaced by [facility] [email or web address] [facility] #[facility]886, [address], [place], [id number], 02/25/2024 13:29:22 metoprolo l tartrate 50 mg tablet 2023 024 ATHENAFAX [facility], [facility] [address], [address], [place], [id number], 08/01/2023 13:00:57 Farxiga 10 mg tablet 2022 023 EVETTE [facility], [facility] [address], [address], [place], [place], [id number], 04/02/2023 12:48:41 Patient TargetsNo targets recorded. Patient Instructions Encounter Date Encounter Id Patient Instructions Last Modified By Organization Details Last Modified Time 07/02/2023 [id number] return as needed [email or web address] Not availa ble 07/02/2023 12:32:27 08/01/2023 [id number] dementia rating scale-2* Not available 08/01/2023 12:56:51 alcohol misuse* Not available 08/01/2023 12:56:51 depression screening* Not available 08/01/2023 12:56:51 vitamin D [email or web address] Not available 2023 12:56:51 multi-dimensiona l health assessment questionnaire* Not available 08/01/2023 12:56:51 Personalized a [facility] Plan and Screening Recommendations Advance Directives - Do you have one? Yes Advance Directives - Do we have your advance directive on file in your health record? No, please bring in a copy at your earliest convenience Primary Prevention/Interven tion (prevents or decreases the chance of common diseases from occurring) Smoking Risk: Non Smoker Alcohol Misuse Screening: Negative Weight: Appropriate Overwei ght continue your current weight loss efforts try to lose 5% of your body weight try to lose 10% of your body weight Physical activity: Need more exercise/physical activity Nutrition: Good Average Fall Risk (screened today): Low Vaccines Pneumococcal: Ordered Recommended today Recommended today, but you have declined No further needed Influenza: Your next one in the fall of this year Chronic Disease Risks Stroke: Low Risk Intermediate Risk I have no recommendations Act ronnie diagnosis, Continue current treatment plan Heart Attack: Low risk Intermediate Risk I have no recommendations Act ronnie diagnosis, Continue current treatment plan Clogging of the Arteries: Low risk Intermediate Risk I have no recommendations Act ronnie diagnosis, Continue current treatment plan Diabetes: Low Risk Intermediate Risk I have no recommendations Ref er to attached handout Pre-diabetes: After Your Visit Drastically limit sugar and products made with any type of flour (bread, pasta, cereal, cookies, crackers, etc.) Secondary Prevention/Interven tion (detects treatable diseases before they may cause symptoms, disability, or ) Prostate Cancer Screening: Colon Cancer Screening: Colonoscopy Date Screening Last Performed: _2023____ Eye Disease Screening: Dementia Risk: Low I have no recommendations Depression Screening: Negative [email or web address] Not available 08/01/2023 12:38:17 Reason for Referral None Reported. Results Created Date Observation Date Name Description Value Unit Range Abnormal Flag Note LastModifiedBy Organization Detail LastModifiedTime 04/02/2004/02/2023 COMPR EHENS RONNIE METAB OLIC PANEL sodium 140 mmol/ L 137-14 5 Not Available [facility] (Lab) [address] [place], [address], 04/02/2023 20:41:03 04/02/20 23 04/02/2023 COMPR EHENS RONNIE METAB OLIC PANEL potassium 4.6 mmol/ L 3.5-5. 1 Not Available [facility] (Lab) [address] [place], [address], 04/02/2023 20:41:03 04/02/20 23 04/02/2023 COMPR EHENS RONNIE METAB OLIC PANEL chloride 108 mmol/ L 98-107 high Not Available [facility] (Lab) [address] [place], [address], 04/02/2023 20:41:03 04/02/20 23 04/02/2023 COMPR EHENS RONNIE METAB OLIC PANEL carbon dioxide 23 mmol/ L 22-30 Not Available [facility] (Lab) [address] [place], [address], 04/02/2023 20:41:03 04/02/20 23 04/02/2023 COMPR EHENS RONNIE METAB OLIC PANEL anion gap 13.6 mmol/ L 14-22 low Not Available [facility] (Lab) [address] [place], [address], 04/02/2023 20:41:03 04/02/20 23 04/02/2023 COMPR EHENS RONNIE METAB OLIC PANEL glucose 117 mg/dL 70-99 high Not Available [facility] (Lab) [address] [place], [address], 04/02/2023 20:41:03 04/02/20 23 04/02/2023 COMPR EHENS RONNIE METAB OLIC PANEL BUN 42 mg/dL 8-19 high Not Available [facility] (Lab) [address] [place], [address], 04/02/2023 20:41:03 04/02/20 23 04/02/2023 COMPR EHENS RONNIE METAB OLIC PANEL creatinine 1.76 mg/dL 0.66-1 .25 high Not Available [facility] (Lab) [address] [place], [address], 04/02/2023 20:41:03 04/02/20 23 04/02/2023 COMPR EHENS RONNIE METAB OLIC PANEL GFR 47 Refer ence Range : [place] GFR Healt hy Adult : >60 mL/mi n/1.7 3 m2 Chron ic Kidne y Disea se: 15-60 mL/mi n/1.7 3 m2 Kidne y Failu re: <15/m L/min /1.73 m2 www.n iddk. nih.g ov The MDRD study equat ion has not been valid ated in child ting <18 years of age; pregn ant women ; the elder ly >85 years of age; or in some racia l or ethni c subgr oups, such as Hispa nics. Outsi de the valid ated elle eters , estim ated GFR is less accur ate, requi ring clini pipe judgm ent on a case- by-ca se basis . Clini pipe inter preta tion for other races and ages must be made by the clini breana. The MDRD study equat ion has not been valid ated for the evalu ation of serum creat inine relat ed to nutri aust[place] l statu s or medic ation usage . For perso ns <18 years of age, a pedia tric GFR calcu lator is avail able on the [facility] websi te: https :[email or web address] w.brendon butlery.o jessica/pr ofess ional s/kdo qi/gf r_cal culat or Not Available [facility] (Lab) [address] [place], [address], 04/02/2023 20:41:03 04/02/20 23 04/02/2023 COMPR EHENS RONNIE METAB OLIC PANEL alkaline phosphatase 102 U/L 38-126 Not Available [facility] (Lab) [address] [place], [address], 04/02/2023 20:41:03 04/02/20 23 04/02/2023 COMPR EHENS RONNIE METAB OLIC PANEL alanine aminotransfe rase 20 U/L 0-50 Not Available [facility] (Lab) [address] [place], [address], 04/02/2023 20:41:03 04/02/20 23 04/02/2023 COMPR EHENS RONNIE METAB OLIC PANEL aspartate aminotransfe rase 22 U/L 15-46 Not Available [facility] (Lab) [address] [place], [address], 04/02/2023 20:41:03 04/02/20 23 04/02/2023 COMPR EHENS RONNIE METAB OLIC PANEL bilirubin, total 0.50 mg/dL 0.20-1 .30 Not Available [facility] (Lab) [address] [place], [address], 04/02/2023 20:41:03 04/02/20 23 04/02/2023 COMPR EHENS RONNIE METAB OLIC PANEL calcium 9.3 mg/dL 8.4-10 .2 Not Available [facility] (Lab) [address] [place], [address], 04/02/2023 20:41:03 04/02/20 23 04/02/2023 COMPR EHENS RONNIE METAB OLIC PANEL total protein 7.2 g/dL 6.3-8. 2 Not Available [facility] (Lab) [address] [place], [address], 04/02/2023 20:41:03 04/02/20 23 04/02/2023 COMPR EHENS RONNIE METAB OLIC PANEL albumin 3.7 g/dL 3.0-4. 4 Not Available [facility] (Lab) [address] [place], [address], 04/02/2023 20:41:03 04/02/20 23 04/02/2023 COMPR EHENS RONNIE METAB OLIC PANEL globulin 3.5 g/dL 2.6-4. 2 Not Available [facility] (Lab) [address] [place], [address], 04/02/2023 20:41:03 04/02/20 23 04/02/2023 COMPR EHENS RONNIE METAB OLIC PANEL A/G ratio 1.1 ratio 1.0-2. 0 Not Available [facility] (Lab) [address] [place], [address], 04/02/2023 20:41:03 06/22/19 24 06/27/2023 PATHO LOGY SERVI CE pathserv SEE COMMEN T See separ ate patho logy repor t. Not Available [facility] (Lab) [address] [place], [address], 06/27/2023 12:30:15 03/04/20 24 03/04/2024 CBC W/O DIFFE RENTI AL white blood cells 6.4 x10'3 /uL 4.2-10 .8 Not Available [facility] (Lab) [address] [place], [address], 03/04/2024 19:38:51 03/04/2003/04/2024 CBC W/O DIFFE RENTI AL red blood cells 4.64 x10'6 /uL 4.10-5 .80 Not Available [facility] (Lab) [address] [place], [address], 03/04/2024 19:38:51 03/04/20 24 03/04/2024 CBC W/O DIFFE RENTI AL hemoglobin 14.0 g/dL 13.2-1 7.0 Not Available [facility] (Lab) [address] [place], [address], 03/04/2024 19:38:51 03/04/20 24 03/04/2024 CBC W/O DIFFE RENTI AL hematocrit 43.4 % 39.3-5 0.0 Not Available [facility] (Lab) [address] [place], [address], 03/04/2024 19:38:51 03/04/2003/04/2024 CBC W/O DIFFE RENTI AL mean red cell volume 93.5 fL 80.0-9 7.0 Not Available [facility] (Lab) [address] [place], [address], 03/04/2024 19:38:51 03/04/2003/04/2024 CBC W/O DIFFE RENTI AL mean red cell hemoglobin 30.2 pg 27.0-3 3.0 Not Available [facility] (Lab) [address] [place], [address], 03/04/2024 19:38:51 03/04/2003/04/2024 CBC W/O DIFFE RENTI AL mean RBC HGB concentratio n 32.3 g/dL 31.0-3 6.0 Not Available [facility] (Lab) [address] [place], [address], 03/04/2024 19:38:51 03/04/2003/04/2024 CBC W/O DIFFE RENTI AL red cell distribution width 14.2 % 11.8-1 5.5 Not Available [facility] (Lab) [address] [place], [address], 03/04/2024 19:38:51 03/04/2003/04/2024 CBC W/O DIFFE RENTI AL platelets 238 x10'3 /uL 150-40 0 Not Available [facility] (Lab) [address] [place], [address], 03/04/2024 19:38:51 03/04/2003/04/2024 CBC W/O DIFFE RENTI AL mean platelet volume 12.2 fL 9.0-12 .4 Not Available [facility] (Lab) [address] [place], [address], 03/04/2024 19:38:51 03/04/2003/04/2024 COMPR EHENS RONNIE METAB OLIC PANEL sodium 139 mmol/ L 137-14 5 Not Available [facility] (Lab) [address] [place], [address], 03/04/2024 19:57:52 03/04/20 24 03/04/2024 COMPR EHENS RONNIE METAB OLIC PANEL potassium 4.7 mmol/ L 3.5-5. 1 Not Available [facility] (Lab) [address] [place], [address], 03/04/2024 19:57:52 03/04/2003/04/2024 COMPR EHENS RONNIE METAB OLIC PANEL chloride 107 mmol/ L 98-107 Not Available [facility] (Lab) [address] [place], [address], 03/04/2024 19:57:52 03/04/2003/04/2024 COMPR EHENS RONNIE METAB OLIC PANEL carbon dioxide 23 mmol/ L 22-30 Not Available [facility] (Lab) [address] [place], [address], 03/04/2024 19:57:52 03/04/2003/04/2024 COMPR EHENS RONNIE METAB OLIC PANEL anion gap 13.7 mmol/ L 14-22 low Not Available [facility] (Lab) [address] [place], [address], 03/04/2024 19:57:52 03/04/2003/04/2024 COMPR EHENS RONNIE METAB OLIC PANEL glucose 88 mg/dL 70-99 Not Available [facility] (Lab) [address] [place], [address], 03/04/2024 19:57:52 03/04/20 24 03/04/2024 COMPR EHENS RONNIE METAB OLIC PANEL BUN 34 mg/dL 8-19 high Not Available [facility] (Lab) [address] [place], [address], 03/04/2024 19:57:52 03/04/2003/04/2024 COMPR EHENS RONNIE METAB OLIC PANEL creatinine 1.68 mg/dL 0.66-1 .25 high Not Available [facility] (Lab) [address] [place], [address], 03/04/2024 19:57:52 03/04/20 24 03/04/2024 COMPR EHENS RONNIE METAB OLIC PANEL GFR 49 Refer ence Range : [place] GFR Healt hy Adult : >60 mL/mi n/1.7 3 m2 Chron ic Kidne y Disea se: 15-60 mL/mi n/1.7 3 m2 Kidne y Failu re: <15/m L/min /1.73 m2 www.n iddk. nih.g ov The MDRD study equat ion has not been valid ated in child ting <18 years of age; pregn ant women ; the elder ly >85 years of age; or in some racia l or ethni c subgr oups, such as Hisnm nics. Outsi de the valid ated elle eters , estim ated GFR is less accur ate, requi ring clini pipe judgm ent on a case- by-ca se basis . Clini pipe inter preta tion for other races and ages must be made by the clini breana. The MDRD study equat ion has not been valid ated for the evalu ation of serum creat inine relat ed to nutri austyn l statu s or medic ation usage . For perso ns <18 years of age, a pedia tric GFR calcu lator is avail able on the [facility] websi te: https ://keiko wharton.brendon carson.o rg/pr ofess ional s/kdo qi/gf r_cal culat or Not Available [facility] (Lab) [address] [place], [address], 03/04/2024 19:57:52 03/04/20 24 03/04/2024 COMPR EHENS RONNIE METAB OLIC PANEL alkaline phosphatase 147 U/L 38-126 high Not Available [facility] (Lab) [address] [place], [address], 03/04/2024 19:57:52 03/04/2003/04/2024 COMPR EHENS RONNIE METAB OLIC PANEL alanine aminotransfe rase 21 U/L 0-50 Not Available [facility] (Lab) [address] [place], [address], 03/04/2024 19:57:52 03/04/2003/04/2024 COMPR EHENS RONNIE METAB OLIC PANEL aspartate aminotransfe rase 26 U/L 15-46 Not Available [facility] (Lab) [address] [place], [address], 03/04/2024 19:57:52 03/04/2003/04/2024 COMPR EHENS RONNIE METAB OLIC PANEL bilirubin, total 0.50 mg/dL 0.20-1 .30 Not Available [facility] (Lab) [address] [place], [address], 03/04/2024 19:57:52 03/04/2003/04/2024 COMPR EHENS RONNIE METAB OLIC PANEL calcium 9.3 mg/dL 8.4-10 .2 Not Available [facility] (Lab) [address] [place], [address], 03/04/2024 19:57:52 03/04/2003/04/2024 COMPR EHENS RONNIE METAB OLIC PANEL total protein 6.9 g/dL 6.3-8. 2 Not Available [facility] (Lab) [address] [place], [address], 03/04/2024 19:57:52 03/04/20 24 03/04/2024 COMPR EHENS RONNIE METAB OLIC PANEL albumin 3.9 g/dL 3.0-4. 4 Not Available [facility] (Lab) [address] [place], [address], 03/04/2024 19:57:52 03/04/2003/04/2024 COMPR EHENS RONNIE METAB OLIC PANEL globulin 3.0 g/dL 2.6-4. 2 Not Available [facility] (Lab) [address] [place], [address], 03/04/2024 19:57:52 03/04/2003/04/2024 COMPR EHENS RONNIE METAB OLIC PANEL A/G ratio 1.3 ratio 1.0-2. 0 Not Available [facility] (Lab) [address] [place], [address], 03/04/2024 19:57:52 03/04/2003/04/2024 LIPID PANEL cholesterol 148 mg/dL 140-19 9 NIH EMANUEL NSUS RECOM MENDA TION FOR ERIC STERO L: ADULT CHILD LOW RISK: <200 <170 BORDE RLINE : <200- 239 ----- HIGH RISK: >240 >200 Not Available [facility] (Lab) [address] [place], [address], 03/04/2024 19:57:57 03/04/2003/04/2024 LIPID PANEL triglyceride s 59 mg/dL 0-150 NIH EMANUEL NSUS REPOR T RECOM MENDA TION FOR TRIGL YCERI SETH: ADULT CHILD LOW RISK: <150 ----- BODER LINE: 150-1 99 ----- HIGH RISK: >200 ----- Not Available [facility] (Lab) [address] [place], [address], 03/04/2024 19:57:57 03/04/2003/04/2024 LIPID PANEL HDL cholesterol 36 mg/dL 40- low Not Available [facility] (Lab) [address] [place], [address], 03/04/2024 19:57:57 03/04/2003/04/2024 LIPID PANEL LDL cholesterol, calculated 100 mg/dL 0-130 NIH EMANUEL NSUS REPOR T RECOM MENDA TIONS FOR LDL: ADULT CHILD LOW RISK <130 <110 (OPTI MAL LDL) <100 ----- BORDE RLINE : 130-1 59 ----- HIGH RISK: >160 >130 A TRIGL YCERI DE RESUL T >400 INVAL IDATE S THE CALCU LATIO N FOR LDL FRACT IONAT ION - THE LDL RESUL T WILL NOT BE REPOR JUNAID. Not Available [facility] (Lab) [address] [place], [address], 03/04/2024 19:57:57 03/04/2003/04/2024 PSA SCREE N PSA medicare screen 5.87 NG/mL 0.00-4 .00 high Not Available [facility] (Lab) [address] [place], [address], 03/04/2024 20:28:51 03/04/2003/04/2024 HEMOG LOBIN A1C HA1C 6.0 % 4.0-6. 0 Diabe emir Scree mayte Crite ana: <5.7% Consi stent with absen ce of diabe emir 5.7-6 .4% Consi stent with incre ased risk for diabe emir (pred iabet es) >OR=6 .5% Consi stent with diabe emir REFER ENCE: Diabe emir Care 2016, 39(Choi ppl.1 ):s13 -s22 Not Available [facility] (Lab) [address] [place], [address], 03/04/2024 20:35:09 06/04/19 24 06/01/2023 XR, chest , 2 view No observ ation record ed. [email or web address] Not Available 2023 12:46:58 02/26/20 24 04/04/2023 colon oscop y scree mayte (PROC ) No observ ation record ed. BARCODE Not Available 10/22/ 2024 18:32:38 Result Notes None recorded. Problems Name Problem SNOMED Code Status Onset Date Resolution Date Notes Provider Name and Address Organization Details Recorded Time Acute sinusiti s 56733305 Completed 202106/05/2022 GABRIELLA Donovan, [place] - [facility] 3 13:07:08 Acute sinusiti s 48215682 Completed 202112/23/2021 GABRIELLA [place], [place] - 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 Not Available [facility] 3 07:31:17 Low back pain 513789542 Completed Not Available [facility] 3 07:31:17 Localize d, primary osteoart hritis of the wrist 000832239 Completed Not Available [facility] 3 07:31:18 Sinusiti s 28608650 Completed Linda Membreno MA null, [facility] 4 12:17:58 Peripher al vascular disease 581538517 Active Not Available [facility] 3 07:31:18 Atrial fibrilla tion 90381505 Active 2011 S/P ablation Not Available [facility] 3 07:31:18 Acute conjunct ivitis 40206552 Completed 202106/05/2022 Not Available [facility] 3 07:31:18 Coronary arterios clerosis 48010698 Active stents x 2 Not Available [facility] 3 07:31:18 Upper respirat ory infectio n 01918554 Completed Not Available [facility] 3 07:31:18 Hyperlip idemia 92523532 Active Not Available [facility] 3 07:31:18 Essentia l hyperten deana 53681565 Active Not Available [facility] 3 07:31:18 Pancreat itis 98598158 Active 2014 Not Available [facility] 3 07:31:19 Hypergly cemia 01983831 Active 2016 Not Available [facility] 3 07:31:19 Neck pain 83354216 Active Not Available [facility] 3 07:31:19 Ex-smoke r 5447288 Active 2016 Not Available [facility] 3 07:31:19 Acute sinusiti s 17990676 Active 2022 Ines Santiago CMA null, [facility] 3 13:07:08 Adult health examinat ion Active 2022 Doreen mcmullen RMA null, [facility] 3 12:25:22 Kidney disease 55946322 Active 2022 López Iglesias MD [address], [place], [address] , [facility] 3 12:48:00 Pain of ear 271945780 Active 2022 Monica Monreal LPN null, [facility] 3 15:26:07 Impacted cerumen in right ear 30077008805 94764 Active 2023 Nico Malcolm MD [address], [place], [address] , [facility] 4 11:55:31 Lipoma of head and/or neck 612051607 Active 2023 Nico Malcolm MD [address], [place], [address] , [facility] 4 11:56:04 Postoper ative pain 869210952 Active 2023 Nico Malcolm MD [address] [facility] [facility] [address], [place], [address] , [facility] 4 17:30:13 Bronchit is 84342754 Active 2023 Doreen mcmullen RMA null, [place] [facility] 4 13:58:32 Acute bronchit is 42210994 Active 2023 Doreen mcmullen RMA null, [place] [facility] 4 13:58:44 Sinusiti s 89087740 Active 2023 Linda Membreno MA null, [facility] 4 12:17:58 Prostate specific antigen above referenc e range 219986658 Active 2023 Linda Membreno MA null, [place] - [facility] 4 10:16:00 Pain of right knee joint 26880477033 4100 Active 2024 Linda Membreno MA null, [place] - [facility] 5 16:09:07 Problem Notes None recorded. Procedures Surgical History Date Name Laterality Status Provider Name and Address Organization Details Recorded Time Medicare Wellness CPT Code, subsequent completed Thi Munoz RN [facility] 08/01/2023 12:32:27 4 excision of lipoma completed OZIEL Nair [facility] 06/06/2023 15:43:13 Orthopedic Surgery completed Not Available [facility] 07/05/2022 07:26:55 Cardiac Stent Placement completed Not Available [facility] 07/05/2022 07:26:55 Orthopedic Surgery completed Not Available [facility] 07/05/2022 07:26:55 Cardiac Stent Placement completed Not Available [facility] 07/05/2022 07:26:55 Orthopedic Surgery completed Not Available [facility] 07/05/2022 07:26:55 Orthopedic Surgery completed Not Available [facility] 07/05/2022 07:26:55 Neck Surgeries completed OZIEL Nair [facility] 05/04/2023 11:23:09 Neck Surgeries completed Trista Herzog RN [facility] 05/10/2023 11:36:35 Imaging Results Imaging Date Name Status LastModified by Organiz ation Details LastModified Time 06/01/2023 XR, chest, 2 view completed [email or web address] Information not available 08/01/2023 12:46:58 04/04/2023 colonoscopy screening (PROC) completed BARCODE Information not available 02/26/2024 18:32:38 Procedure Notes None recorded. Medical Equipment None Reported. Allergies Allergen ID Allergen Name Allergen Category Reaction Reaction Severity Criticality Documentation Date Start Date Code Code System Note Provider Name and Address Organization Details Recorded Time 62659 iodine medicatio n other Not available Not available 07/05/2022 5933 RxNorm swell ing and SOB Not Available [facility] 3 07:36:42 06305 codeine medicatio n nausea Not available Not available 07/05/2022 2670 RxNorm [facility] Available [facility] [facility] 3 07:36:43 Medications Name Sig Start Date Stop Date Status Note LastModified by Organization Details LastModified Time carisopro dol 350 mg tablet Take 1 tablet every day by oral route at bedtime. active Not Available Not Available No t Available ketorolac 15 mg/mL injection solution Inject 2 mL every 6 hours by intramus cular route. 09/26 completed Not Available Not Available Not Available cyclobenz aprine 10 mg tablet Take 1 tablet 3 times a day by oral route. active Not Available Not Available No t Available amoxicill in 500 mg capsule TAKE 1 CAPSULE BY MOUTH THREE TIMES DAILY FOR 7 DAYS active Not Available Not Available No t Available latanopro st 0.005 % eye drops PLACE 1 DROP BOTH EYES AT NIGHT active Not Available Not Available No t Available azelastin e 0.05 % eye drops 02/12 completed Not Available Not Available Not Available prednison e 10 mg tablet Take by oral route. take [id number], [id number], [id number] 09/16 completed Not Available Not Available Not Available doxycycli ne hyclate 100 mg capsule Take 1 capsule twice a day by oral route. active Not Available Not Available No t Available atorvasta tin 20 mg tablet TAKE 1 TABLET BY MOUTH DAILY active Not Available Not Available No t Available azithromy randall 250 mg tablet TAKE 2 TABLETS (500 MG) BY ORAL ROUTE ONCE DAILY FOR 1 DAY THEN 1 TABLET (250 MG) BY ORAL ROUTE ONCE DAILY FOR 4 DAYS active Not Available Not Available No t Available aspirin 325 mg tablet Take 1 tablet every day by oral route. active cardiolo gist Not Available Not Available Not Available benzonata te 200 mg capsule Take 1 capsule 3 times a day by oral route. 09/15 completed Not Available Not Available Not Available hydrocodo ne 5 mg-acetam inophen 325 mg tablet Take 1 tablet every 6 hours by oral route. 02/27 completed Not Available Not Available Not Available ondansetr on HCl 4 mg tablet Take 1 tablet twice a day by oral route as needed. 06/08 completed Not Available Not Available Not Available prednison e 20 mg tablet TAKE 2 TABLETS BY MOUTH DAILY FOR 5 DAYS 09/16 completed Not Available Not Available Not Available chlorthal idone 25 mg tablet active Not Available Not Available No t Available amlodipin e 5 mg tablet TAKE 1 TABLET BY MOUTH DAILY 05/13 completed JOAN 02/25/24 NOV 06/30/24 ok to rf Not Available Not Available Not Available Ciloxan 0.3 % eye drops INSTILL 1 DROP INTO AFFECTED EYE(S) BY OPHTHALM IC ROUTE EVERY 2 HOURSWHI LE AWAKE FOR 2 DAYS THEN 1 DROP EVERY 4 HRS WHILE AWAKE FOR 5 DAYS 02/12 completed Not Available Not Available Not Available hydrocodo ne 10 mg-acetam inophen 325 mg tablet 09/26 completed Not Available Not Available Not Available tramadol 50 mg tablet Take 1 TABLET EVERY 6 HOURS by oral route prn active Not Available Not Available No t Available ketorolac 30 mg/mL (1 mL) injection solution Inject 1 mL every 6 hours by intramus cular route. active Not Available Not Available No t Available amoxicill in 500 mg tablet Take 1 tablet 3 times a day by oral route for 7 days. 05/15 completed Not Available Not Available Not Available methocarb figueroa 750 mg tablet 02/27 completed Not Available Not Available Not Available amlodipin e 10 mg tablet TAKE 1 TABLET BY MOUTH DAILY active Not Available Not Available No t Available benzonata te 100 mg capsule 09/26 completed Not Available Not Available Not Available hydrocodo ne 7.5 mg-acetam inophen 325 mg tablet TAKE 1 TABLET BY MOUTH EVERY 6 HOURS 07/02 completed Not Available Not Available Not Available cephalexi n 500 mg capsule TAKE ONE CAPSULE BY MOUTH IN THE MORNING AND 1 CAPSULE AT NOON AND 1 CAPSULE IN THE EVENING FOR 7 DAYS 06/07 completed Not Available Not Available Not Available pantopraz ole 40 mg tablet,de layed release active Not Available Not Available Not Available oseltamiv ir 75 mg capsule 06/08 completed Not Available Not Available Not Available prednison e 50 mg tablet TAKE ONE TABLET DAILY WITH FOOD OR MILK 01/13 completed Not Available Not Available Not Available valsartan 320 mg tablet TAKE 1 TABLET BY MOUTH DAILY active Not Available Not Available No t Available ibuprofen 400 mg tablet 06/07 completed Not Available Not Available Not Available metoprolo l tartrate 50 mg tablet TAKE 1 TABLET BY MOUTH TWICE DAILY active Not Available Not Available No t Available diclofena c sodium 75 mg tablet,de layed release Take 1 tablet every 12 hours by oral route as needed. active Not Available Not Available No t Available monteluka st 10 mg tablet Take 1 tablet every day by oral route. 07/26 completed Not Available Not Available Not Available levofloxa randall 500 mg tablet Take 1 tablet every 24 hours by oral route for 7 days. 10/03 completed Not Available Not Available Not Available methylpre dnisolone 4 mg tablets in a dose pack take as directed 10/03 completed Not Available Not Available Not Available albuterol sulfate HFA 90 mcg/actua tion aerosol inhaler INHALE 2 PUFFS BY MOUTH EVERY 4 HOURS active Not Available Not Available No t Available losartan 100 mg tablet Take 1 tablet every day by oral route. active Not Available Not Available No t Available fluticaso ne propionat e 50 mcg/actua tion nasal spray,elijah pension USE 2 SPRAYS IN EACH NOSTRIL ONCE DAILY active Not Available Not Available No t Available naproxen 500 mg tablet Take 1 tablet twice a day by oral route. 07/26 completed Not Available Not Available Not Available metoclopr amide 10 mg tablet 06/07 completed Not Available Not Available Not Available amoxicill in 875 mg-potass ium clavulana te 125 mg tablet Take 1 tablet every 12 hours by oral route for 7 days. 07/26 completed Not Available Not Available Not Available cyclobenz aprine 5 mg tablet Take 1 tablet twice a day by oral route. active Not Available Not Available No t Available metoprolo l tartrate 25 mg tablet one tablet twice daily 02/24 completed Not Available Not Available Not Available Euflexxa 10 mg/mL (mw 2.4-3.6 million) intra-art icular syringe active Not Available Not Available Not Available Effient 10 mg tablet active Not Available Not Available Not Available Prevnar 13 (PF) 0.5 mL intramusc ular syringe active Not Available Not Available Not Available Edarbi 80 mg tablet TAKE 1 TABLET BY MOUTH EVERY DAY active Not Available Not Available No t Available Farxiga 10 mg tablet TAKE 1 TABLET BY MOUTH EVERY DAY active Not Available Not Available No t Available Fluzone High-Dose 6246-4002 (PF) 180 mcg/0.5 mL intramusc ular syringe active Not Available Not Available Not Available Fluzone High-Dose (PF) 180 mcg/0.5 mL intramusc ular syringe active Not Available Not Available Not Available Fluad Quad 0921-1590 (65yr up)(PF) 60 mcg (15 mcg x 4)/0.5mL IM syringe PHARMACY ADMINIST ERED active Not Available Not Available No t Available Vitals Date Recorded Body height Body mass index (BMI) Body weight Body temperature Heart rate Oxygen saturation Oxygen saturation in Arterial blood by Pulse oximetry Systolic blood pressure Diastolic blood pressure Provider Name and Address Organization Details Last Updated DateTime 3 185.42 cm 32.5 kg/m2 432787. 72 g 97.5 [degF] 63 /min 97 % 97 % 140 mm[Hg] 74 mm[Hg] JOHNATHAN Acevedo ME [employer] [facility] [employer] [facility] 3 12:16:44 Date Recorded Body height Body mass index (BMI) Body weight Body temperature Provider Name and Address Organization Details Last Updated DateTime 05/10/2023 185.42 cm 32.6 kg/m2 632022.75 g 97.7 [degF] Trista Herzog RN [facility] [employer] 05/10/2023 11:35:31 Date Recorded Body height Body mass index (BMI) Body weight Body temperature Provider Name and Address Organization Details Last Updated DateTime 07/02/2023 185.42 cm 32.2 kg/m2 669779.26 g 98 [degF] Trista Herzog RN [facility] [employer] [facility] 07/02/2023 11:38:25 Date Recorded Body height Body mass index (BMI) Body weight Body temperature Heart rate Respiratory rate Oxygen saturation Oxygen saturation in Arterial blood by Pulse oximetry Systolic blood pressure Diastolic blood pressure Provider Name and Address Organization Details Last Updated DateTime 4 185.42 cm 32.3 kg/m2 884480. 13 g 97.2 [degF] 64 /min 16 /min 97 % 97 % 182 mm[Hg] 84 mm[Hg] Linda Membreno MA [facility] [employer] [facility] 4 12:13:57 Date Recorded Pain severity - 0-10 verbal numeric rating [Score] - Reported Provider Name and Address Organization Details Last Updated DateTime 08/01/2023 0 Thi Munoz RN [facility] [employer] [facility] 08/01/2023 12:32:42 Date Recorded Body height Body mass index (BMI) Body weight Body temperature Heart rate Oxygen saturation Oxygen saturation in Arterial blood by Pulse oximetry Systolic blood pressure Diastolic blood pressure Provider Name and Address Organization Details Last Updated DateTime 4 185.42 cm 31.8 kg/m2 763210. 76 g 98 [degF] 73 /min 97 % 97 % 140 mm[Hg] 80 mm[Hg] JOHNATHAN Acevedo [facility] [employer] [facility] 4 12:20:40 Social History Question Answer Notes LastModified by Organizat ion Details LastModified Time Tobacco Smoking Status Former Smoker Not Available [employer] 07/05/2022 07:26:40 Do You Have An Advance Directive? Yes [id number] Information not available 07/05/2022 What Is Your Level Of Alcohol Consumption? Occasional [id number].[id number] Information not available 07/05/2022 Are You Blind Or Do You Have Difficulty Seeing? No MIGRATION.[id number] Information not available 07/05/2022 What Is Your Level Of Caffeine Consumption? Moderate MIGRATION.[id number] Information not available 07/05/2022 How Much Tobacco Do You Chew? None MIGRATION.[id number] 0162 Information not available 07/05/2022 Are You Deaf Or Do You Have Serious Difficulty Hearing? No MIGRATION.[id number] Information not available 07/05/2022 What Type Of Diet Are You Following? REGULAR MIGRATION.[id number] 1961 Information not available 07/05/2022 Which Illicit Or Recreational Drugs Have You Used? 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 No [email or web address] Information not available 08/01/2023 What Is The Fluoride Status Of Your Home? Fluoridated MIGRATION.[id number] 9408 Information not available 07/05/2022 Where Do You Live? [facility] [email or web address] Information not available 08/01/2023 Are You Able To Care For Yourself? Yes [email or web address] Information not available 08/01/2023 Are You Blind Or Do Yo Have Difficulty Seeing? No [email or web address] Information not available 08/01/2023 Are You Deaf Or Do You Have Serious Difficulty Hearing? No [email or web address] Information not available 08/01/2023 Live Alone Of With Others? With Others [email or web address] Information not available 08/01/2023 What Was The Date Of Your Most Recent Tobacco Screening? 08/01/2023 [email or web address] Information not available 08/01/2023 Do You Have Any Pets? No [email or web address] Information not available 08/01/2023 Do You Use Your Seat Belt Or Car Seat Routinely? Yes MIGRATION.[id number] Information not available 07/05/2022 Do You Have Smoke And Carbon Monoxide Detectors In Your Home? Yes MIGRATION.502169 7957 Information not available 07/05/2022 At What Age Did You Start Smoking Tobacco? 22 MIGRATION.984192 0389 Information not available 07/05/2022 Are You Passively Exposed To Smoke? No [email or web address] Information not available 08/01/2023 Are There Any Smokers In Your House? No [email or web address] Information not available 08/01/2023 How Much Tobacco Do You Smoke? 0.5 PPD MIGRATION.986138 5336 Information not available 07/05/2022 Do You Use Sunscreen Routinely? No MIGRATION.997679 5727 Information not available 07/05/2022 Sex: Unknown Functional Status Question Answer Note LastModified by Organizat ion Details LastModified Time Do you have difficulty walking or climbing stairs? No MIGRATION.[id number] 026 Information not available 07/05/2022 Do you have transportation difficulties? No MIGRATION.[id number] 026 Information not available 07/05/2022 Are you able to walk? YESWOREST MIGRATION.9167455 026 Information not available 07/05/2022 Do you have difficulty doing errands alone? No MIGRATION.[id number] 026 Information not available 07/05/2022 Are you able to care for yourself? Yes MIGRATION.[id number] 026 Information not available 07/05/2022 Do you have difficulty dressing or bathing? No MIGRATION.0572151 026 Information not available 07/05/2022 What is your exercise level? Occasional MIGRATION.[id number] 026 Information not available 07/05/2022 Mental Status Question Answer Note LastModified by Organizat ion Details LastModified Time Do you have difficulty concentrating, remembering or making decisions? No [id number].[id number] 6 Information not available 07/05/2022 Family History Relationship Description Onset Age of this Age Resolved Age Notes LastModified by Organization Details LastModified Time Mother Heart disease [id number] Not available 07/05/2022 07:26:56 Brother Hypertensive disorder MIGRATION.323 [id number] Not available 07/05/2022 07:26:56 Sister Hypertensive disorder MIGRATION.[id number] Not available 07/05/2022 07:26:56 Paternal Grandmother Diabetes mellitus MIGRATION.[id number] Not available 07/05/2022 07:26:56 Notes:NO ENT Medical History Condition Response HIGH CHOLESTEROL / HYPERLIPIDEMIA Y CORONARY ARTERY DISEASE (CAD) Y ENT Y PERIPHERAL VASCULAR DISEASE Y HYPERTENSION Y Immunizations Vaccine Type Date Status Note Provider Nam e and Address Organization Details Recorded Time Influenza, high-dose, quadrivalent, PF 3 completed López Iglesias MD [address] [facility], [facility] [address], [place], [address], [place] [employer] 04/02/2023 12:41:52 Influenza, split virus, quadrivalent, preservative 0 completed Not Available [facility] 07/05/2022 07:36:29 SARS-COV-2 (COVID-19) vaccine, UNSPECIFIED 1 completed Not Available [facility] 07/05/2022 07:36:29 Influenza, high-dose, trivalent, PF 9 completed Not Available [facility] 07/05/2022 07:36:29 Influenza, split virus, quadrivalent, preservative 8 completed Not Available [facility] 07/05/2022 07:36:29 pneumococcal polysaccharide PPV23 0 completed Not Available [facility] 07/05/2022 07:36:29 Pneumococcal conjugate PCV 13 9 completed Not Available [facility] 07/05/2022 07:36:29 Influenza, high-dose, trivalent, PF 4 completed López Iglesias MD [address] [place] [address], [place], [address], [facility] [employer] 02/25/2024 17:20:54 Past Encounters Encounter ID Performer Location Encounter Start Date Encounter Closed Date Diagnosis/Indication Diagnosis SNOMED-CT Code Diagnosis ICD10 Code Diagnosis Note [id number] [facility] [address] [address] 07/06/2020 00:00:00 07/06/2020 15:38:30 [id number] [facility] [address] [place] [address] 07/26/2021 00:00:00 07/26/2021 17:05:00 [id number] [facility] [address] [address] 12/27/2021 00:00:00 12/27/2021 12:41:20 [id number] [facility] [address] [address] 02/14/2022 00:00:00 02/14/2022 12:53:52 [id number] [facility] Internal Med [address] [place] [address] 06/07/2022 00:00:00 06/07/2022 12:13:26 [id number] López Iglesias MD [facility] Internal Med [address] [place] [address] 04/02/2023 12:03:52 04/02/2023 12:57:14 Essential hypertension 52838753 I10 fair Atrial fibrillation 4943 6004 I48.91 in sinus Hyperlipidemia 20885882 E78.5 labs Hyperglycemia 42407847 R 73.9 watch diet Ventricula r tachycardia 81417173 I47.20 no symptoms Adult heal th examination 779587944 Z00.00 Colonoscop y- this weekPSA-2Pneum ovax- 23 in 2019Prevna r 13 in 2019FLU- 04/02/23CO VID- Administra tion of influenza vaccine 80058602 Z23 Kidney disease 83412834 N08 [facility] [id number] Nico Malcolm MD [facility] [place] [address] [place] [address] 05/10/2023 11:08:08 05/10/2023 12:22:57 Impacted cerumen in right ear 7984327469 112641 H61.21 Lipoma of head and/or neck 344635337 D17.0 [id number] Nico Malcolm MD [facility] [place] [address] [place] [address] 07/02/2023 11:12:20 07/02/2023 15:56:14 Lipoma of head and/or neck 705959652 D17.0 [id number] López Iglesias MD [facility] Internal Med [address] [place] [address] 08/01/2023 12:02:00 08/01/2023 13:49:39 Essential hypertension 48142445 I10 ^ Atrial fibrillation 4943 6004 I48.91 in sinus Hyperlipidemia 50608208 E78.5 labs Hyperglycemia 02246852 R 73.9 watch diet Ventricula r tachycardia 35744484 I47.20 no symptoms Adult heal th examination 234325140 Z00.00 Colonoscop y- this weekPSA-2Pneum ovax- 23 in 2019Prevna r 13 in 2018FLU- 04/02/23CO VID- Kidney disease 69272093 N08 on [facility] Screening for disorder 596046287 Z13.9 Screening for malignant neoplasm of prostate 629356762 Z12.5 [id number] López Iglesias MD [facility] [address] [place] [address] 02/25/2024 12:09:33 02/25/2024 12:47:04 Essential hypertension 54794371 I10 better Atrial fibrillation 4943 6004 I48.91 in sinus Hyperlipidemia 72276840 E78.5 labs Hyperglycemia 46863948 R 73.9 watch diet Ventricula r tachycardia 82791303 I47.20 no symptoms Adult heal th examination 800680834 Z00.00 Colonoscop y- 2022, no reportPSA- 2Pne umovax- 23 in 2019Prevna r 13 in 2019FLU- 02/25/24CO VID- Kidney disease 64744706 N08 on [facility], check labs and decide about nephrology Screening for malignant neoplasm of prostate 236062425 Z12.5 Administra tion of influenza vaccine 20053298 Z23 Health Concerns Section Related Observation LastModified by Organization Detai ls LastModified Time None Recorded Concern Status LastModified by Organization Details LastModified Time None Recorded Advance Directives Directive Y: Payers Encounter Date Sequence Insurance Name Policy Number Policy Mathews Covered Member ID Mathews Member ID Guarantor Name 04/02/2023 1 [facility] (MEDICARE REPLACEMENT/A DVANTAGE - HMO) [id number] [employer] [place] [id number] [employer] 05/10/2023 1 [facility] (MEDICARE REPLACEMENT/A DVANTAGE - HMO) [id number] [employer] [place] [id number] Rad[employer] [place] 07/02/2023 1 [facility] (MEDICARE REPLACEMENT/A DVANTAGE - HMO) [id number] Rad[employer] [place] [id number] Rad[employer]a 08/01/2023 1 [facility] (MEDICARE REPLACEMENT/A DVANTAGE - HMO) [id number] [employer] [place] [id number] Rad[employer]a 02/25/2024 1 [facility] (MEDICARE REPLACEMENT/A DVANTAGE - HMO) [id number] [employer] [place] [id number] [employer] Notes Date Note Type Note Provider Name and Address Organization Details Recorded Time 04/02/2023 text/html Doing fine, compliant to medications, no side affects, here for followup. CAD s/p stent x 1 yrs ago, dr Heaton, no chest pain/ sobmeds- asaHTN- on meds, bp is [facility]med[facility]- metoprolol, Edarbi, chlorthalidone, amlodipine Hyperlipidemia, takes meds, labs are good 05/29Meds- Atorvastatin 20mg SVT/A fib s/p ablation, no recurrence, no symptoms Hyperglycemia- 124 but it was not fasting, A1c 5.6 in 05/29 PVD- s/p stent yrs ago, no symptoms Ex- smoker- quit in 2008All rhinitis- on Fluticasone Kidney disease- GFR 50,Covid 19 in 11/25, no complications López Iglesias MD [address], [address], [place], [address], [employer] 04/02/2023 12:51:55 05/10/2023 text/html this patient reports congestion of his right ear with itching. In addition he reports a mass behind his right ear which is slowly growing and bothers him at time Nico Malcolm MD [address], [address], [place], [address], [employer] 05/10/2023 11:56:30 07/02/2023 text/html lipoma Nico Malcolm MD [address], [place], [address], [employer] 07/02/2023 12:32:52 08/01/2023 text/html Doing fine, compliant to medications, here for followup. Feels as if the [facility] is giving him frequent urination. CAD s/p stent x 1 yrs ago, dr Heaton, no chest pain/ sobmeds- asaHTN- on meds, bp is fairmeds- metoprolol 25 bid, , Edarbi 80 mg qd, amlodipine 10 mg qd Hyperlipidemia, takes meds, labs dueMeds- Atorvastatin 20mg SVT/A fib s/p ablation, no recurrence, no symptoms Hyperglycemia- 124 but it was not fasting, A1c 5.6 in 05/29 PVD- s/p stent yrs ago, no symptoms Ex- smoker- quit in ll rhinitis- on Fluticasone Kidney disease- GFR 47,Meds- Farxiga 10 mg qdCovid 19 in 11/25, no complications López Iglesias MD [address], [address], [place], [address], [employer] 08/01/2023 12:59:41 02/25/2024 text/html Doing fine, compliant to medications, here for followup. CAD s/p stent x 1 yrs ago, dr Heaton, no chest pain/ sobmeds- asaHTN- on meds, bp is [facility]med[facility]- metoprolol 25 bid, but supposed to be taking 50 mg bid , Edarbi 80 mg qd, amlodipine 10 mg qd Hyperlipidemia, takes meds, labs dueMeds- Atorvastatin 20mg SVT/A fib s/p ablation, no recurrence, no symptoms Hyperglycemia- 124 but it was not fasting, A1c 5.6 in 05/29 PVD- s/p stent yrs ago, no symptoms Ex- smoker- quit in ll rhinitis- on Fluticasone Kidney disease- GFR 47, not seeing nephrology any moreMeds- Farxiga 10 mg qdCovid 19 in 11/25, no complications López Iglesias MD [address], [address], [place], [address], [employer] 02/25/2024 17:20:58
--- OUTSIDE RECORDS SUMMARY | 2024-07-15 15:01 | XMS_ITS | Clinical Summary ---
Author Organization [facility] [place] Address [address] [place] [address] Care Team Providers Care Linen Grader Name Role Phone Nish Martin MD Primary Care Provider + [phone] Payam Stanton MD Unavailable [phone] Chela Heaton MD Unavailable Faby Rodriguez RN Unavailable [phone] Source Comments [facility],non-owned Affiliates and Associated Physician Practices is amultiple site organization consisting of ambulatory clinics and hospital sitesin [place], [place], [place] and [place]. This disclosure is being madepursuant to the Care Everywhere program and may not contain all information available regarding this patient. 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 Plan of Treatment Health Maintenance Due Date Last Done Comments COLOGUARD (AGES 45-75) - COL ON CA SCREENING 1952 COLON MONITORING 1952 COLONOSCOPY - COLON CA SCREENING 1952 CT COLONOGRAPHY - COLON CA SCREENING 1952 Colorectal Cancer Screening 1952 FIT - COLON CA SCREENING 1952 FLEX SIG - COLON CA SCREENING 1952 HEPATITIS C SCREENING 11/29/1970 DTAP/TDAP/TD VACCINES (1 - Tdap) 12/04/1971 PNEUMOCOCCAL VACCINE 50+ (1 of 1 - PCV) 2002 ZOSTER VACCINE (1 of 2) 2002 AAA SCREENING 2017 COVID-19 VACCINE (1 - 2023-2 5 season) 2024 INFLUENZA VACCINE (#1) 2024 DEPRESSION SCREENING 05/07/2024 Respiratory Syncytial Virus (RSV) Vaccine Pt: or over 60 yrs (1 - 1-dose 75+ series) 12/04/2027 HEPATITIS B VACCINE Aged Out No longe r eligible based on patient's age to complete this topic HIB VACCINE Aged Out No longer eligi ble based on patient's age to complete this topic HPV VACCINE Aged Out No longer eligi ble based on patient's age to complete this topic MENINGOCOCCAL (Group B) VACCINE Aged Out No longer eligible based on patient's age to complete this topic MENINGOCOCCAL VACCINE Aged Out No boby magdiel eligible based on patient's age to complete this topic Medical Devices Implanted Type Area Air Deodorizer Servicer Device Identifier Shelf Expiration Date Model / Serial / Lot Dale Maradiaga Db Jar 2.0cc Implanted:Qty : 1 on 09/09/2013 by Vignesh Mendoza MD at [facility] N/A: Spine Cervical [employer] 01/28/2016 [id number] / / [id number] Space Peek 6 X 16 X 14mm Implanted:Qty : 1 on 09/09/2013 by Vignesh Mendoza MD at [facility] N/A: Spine Cervical Med[employer]onic [employer] 03/27/2021 [id number] / / [id number] Space Peek 6 X 16 X 14mm Implanted:Qty : 1 on 09/09/2013 by Vignesh Mendoza MD at [facility] N/A: Spine Cervical Medtronic [employer] 04/15/2021 [id number] / / [id number] Space Peek 5 X 16 X 14mm Implanted:Qty : 1 on 09/09/2013 by Vignesh Mendoza MD at [facility] N/A: Spine Cervical Med[employer]onic [employer] 03/17/2021 [id number] / / [id number] Plate Ant Cerv Assem 62.5mm Implanted:Qty : 1 on 09/09/2013 by Vignesh Mendoza MD at [facility] N/A: Spine Cervical Medtronic [employer] [id number] / / Scrw Self Drill New 4.0 X 17 Implanted:Qty : 8 on 09/09/2013 by Vignesh Mendoza MD at [facility] N/A: Spine Cervical Medtronic [employer] Spine [id number] / / Advance Directives * Full Code (Latest Code Status on File) Date Activated Date Inactivated Comments 09/09/2013 1:00 PM 09/10/2013 1:05 PM Care Teams Linen Grader Relationship Specialty Start Date End Date Nish Martin MD [address] [phone] PCP - General Internal Medicine 06/12/13 Payam Stanton MD [address] [place] [phone] Orthopedic Surgery 08/06/13 Chela Heaton MD [address] [place] [address] Cardiology 08/06/13 Faby Rodriguez, RN Analytical Consultant 09/10/13
--- OUTSIDE RECORDS SUMMARY | 2024-07-15 15:01 | XMS_ITS | Clinical Summary ---
Author Organization [facility] Care Team Providers Care Steerer Name Role Phone Unavailable Primary Care Provider Unavailabl e Social History Tobacco Use Types Packs/Day Years Used Date Smoking Tobacco: Never Assessed Sex and Gender Information Value Date Recorded Sex Assigned at Not on file Legal Sex Male 10:39 AM CDT Gender Identity Not on file Sexual Orientation Not on file Plan of Treatment Health Maintenance Due Date Last Done Comments Hepatitis C Virus (HCV) Screening 1950 TdaP Immunization 1952 Colonoscopy 1997 Colorectal Cancer Screening 1997 Cologuard 2002 Immunochemical Fecal Occult Blood 2002 Zoster Immunization (1 of 2) 2002 Pneumococcal Immunization (5 0+ years) (2 of 2 - PPSV23) 02/02/2020 02/01/2019 Influenza Immunization (#1) 01/06/202401/06, 03/10/2018 SARS-COV-2 Immunization ( season) 2024 07/26/2020, 06/28/2020 Respiratory Syncytial Virus (RSV) Immunization (Adult) (1 - 1-dose 75+ series) 12/04/2027 Hepatitis B Immunization Aged Out No longer eligible based on patient's age to complete this topic Meningococcal Immunization (ACWY) Aged Out No longer eligible b ased on patient's age to complete this topic Rotavirus Immunization Aged Out No lo nger eligible based on patient's age to complete this topic
--- OUTSIDE RECORDS SUMMARY | 2024-07-15 15:01 | XMS_ITS | Patient Health Summary ---
Author Organization [facility] Address [address] [place] [address] Care Team Providers Care Atmospheric Chemist Name Role Phone Nish Martin MD Primary Care Provider + [phone] Payam Stanton MD Unavailable [phone] Chela Heaton MD Unavailable [phone] Faby Rodriguez RN Unavailable [phone] Note from [facility],non-owned Affiliates and Associated Physician Practices is amultiple site organization consisting of ambulatory clinics and hospital sitesin [place], [place], [place] and [place]. This disclosure is being madepursuant to the Care Everywhere program and may not contain all information available regarding this patient. Last updated 18.[facility] Allergies * Codeine(Nausea and/or Vomiting) * Povidone Iodine(Anaphylaxis) -High Criticality * Latex(Rash) -Low Criticality * Etodolac * Shellfish Allergy(Anaphylaxis) -High Criticality Medications * Be aware that medications may not be up to date on this document. Alwaysverify current medications with the patient. * aspirin 325 MG tablet * valsartan (DIOVAN) 320 MG tablet Take 320 mg by mouth at bedtime. * atorvastatin (LIPITOR) 20 MG tablet Take 20 mg by mouth at bedtime. * hydrocodone-acetaminophen (NORCO) 5-325 MG tablet(Started 09/10/2013) Take 1 Tab by mouth every 4 hours as needed. 1 refill left * methocarbamol (ROBAXIN) 750 MG tablet(Started 09/10/2013) Take 1 Tab by mouth 4 times daily. 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 Medical Devices Implanted Type Area Subway Car Repairer Device Identifier Shelf Expiration Date Model / Serial / Lot Dale Maradiaga m Jar 2.0cc Implanted:Qty : 1 on 09/09/2013 by Vignesh Mendoza MD at [facility] N/A: Spine Cervical [employer] 01/28/2016 [id number] / / [id number] Space Peek 6 X 16 X 14mm Implanted:Qty : 1 on 09/09/2013 by Vignesh Mendoza MD at [facility] N/A: Spine Cervical Medtronic [employer] 03/27/2021 [id number] / / [id number] Space Peek 6 X 16 X 14mm Implanted:Qty : 1 on 09/09/2013 by Vignesh Mendoza MD at [facility] N/A: Spine Cervical Medtr[employer] 04/15/2021 [id number] / / [id number] Space Peek 5 X 16 X 14mm Implanted:Qty : 1 on 09/09/2013 by Vignesh Mendoza MD at [facility] N/A: Spine Cervical [employer] 03/17/2021 [id number] / / [id number] Plate Ant Cerv Assem 62.5mm Implanted:Qty : 1 on 09/09/2013 by Vignesh Mendoza MD at [facility] N/A: Spine Cervical Medtronic [employer] [id number] / / Scrw Self Drill New 4.0 X 17 Implanted:Qty : 8 on 09/09/2013 by Vignesh Mendoza MD at [facility] N/A: Spine Cervical Med[employer] Spine [id number] / / Procedures * XR CERVICAL SPINE 2 OR 3VW(Performed 10/27/2013) Performed for S/P cervical discectomy * LAB RESULTS ORDER(Performed 09/11/2013) * CARDIAC EKG ORDER(Performed 09/11/2013) * CARDIAC RHYTHM STRIP ORDER(Performed 09/11/2013) * XR SPINE 1 VIEW(Performed 09/09/2013) Performed for Cervical spondylosis without myelopathy * DISCECTOMY WITH FUSION ANTERIOR CERVICAL (ACDF) MICROSCOPIC(Performed 09/09/2013) Performed for Cervical spondylarthritis * XR CHEST 2VW(Performed 08/25/2013) * COMPREHENSIVE METABOLIC PANEL(Performed 08/22/2013) * CBC W AUTO DIFFERENTIAL W PLATELETS(Performed 08/22/2013) * MRI CERVICAL SPINE WO CONTRAST(Performed 06/04/2013) Results * XR CERVICAL SPINE 2 OR 3 VW (10/27/2013 12:05 PM CDT) Anatomical Region Laterality Modality Spine Radiographic Savanna ging 10/27/2013 2:05 PM CDT Impressions 10/27/2013 3:15 PM CDT Postop changes. Edited by Viji Rizzo on 10/27/2013 2:57 PM Narrative 10/27/2013 3:15 PM CDT CERVICAL SPINE 2 VIEWS. HISTORY: Postop evaluation. AP and lateral views of the cervical spine show plate and screw interspace cage stabilization at C4, C5, C6 and C7. Alignment is maintained. Odontoid process is normal. Procedure Note Nick Partida MD - 10/27/2013 CERVICAL SPINE 2 VIEWS. HISTORY: Postop evaluation. AP and lateral views of the cervical spine show plate and screw interspace cage stabilization at C4, C5, C6 and C7. Alignment is maintained. Odontoid process is normal. IMPRESSION Postop changes. Edited by Viji Rizzo on 10/27/2013 2:57 PM Vignesh Mendoza MD DIAGNOSTIC IMAGING O RDERABLES * LAB RESULTS ORDER (09/11/2013 9:51 PM CDT) Narrative 09/11/2013 9:51 PM CDT Ordered by an unspecified provider. Transcriptions Document, Scanned - 09/11/2013 9:50 PM CDT Scanned Document LAB - THERAPEUTIC DR UG MONITORING ORDERABLES * CARDIAC RHYTHM STRIP ORDER (09/11/2013 9:50 PM CDT) Narrative 09/11/2013 9:50 PM CDT Ordered by an unspecified provider. Transcriptions Document, Scanned - 09/11/2013 9:50 PM CDT Scanned Document CARDIAC SERVICES ORD ERABLES * CARDIAC EKG ORDER (09/11/2013 9:50 PM CDT) Narrative 09/11/2013 9:50 PM CDT Ordered by an unspecified provider. Transcriptions Document, Scanned - 09/11/2013 9:50 PM CDT Scanned Document CARDIAC SERVICES ORD ERABLES * XR SPINE 1 VIEW (09/09/2013 11:07 AM CDT) Anatomical Region Laterality Modality Spine Radio Fluoroscop y Narrative 09/17/2013 11:36 AM CDT No Dictation. Procedure Note Korina Rodriguez - 09/17/2013 No Dictation. Vignesh Mendoza MD DIAGNOSTIC IMAGING O RDERABLES * XR CHEST PA AND LATERAL (08/25/2013) Anatomical Region Laterality Modality Chest Other Vignesh Mendoza MD DIAGNOSTIC IMAGING O RDERABLES * CBC W AUTO DIFFERENTIAL W PLATELETS (08/22/2013) BLOOD SPECIMEN / Unknown Vignesh Mendoza MD LAB - HEMATOLOGY ORD ERABLES * COMPREHENSIVE METABOLIC PANEL (08/22/2013) Blood specimen (specimen) BLOOD SPECIMEN / Unknown Vignesh Mendoza MD LAB - CHEMISTRY [facility] ACCOUNT BILL * MRI SPINE CERVICAL NON CONTRAST (06/04/2013) Anatomical Region Laterality Modality Pelvis Other Vignesh Mendoza MD MR ORDERABLES Care Teams Atmospheric Chemist Relationship Specialty Start Date End Date Nish Martin MD [address] [place] [address] [address] [place] [phone] PCP - General Internal Medicine 06/12/13 Payam Stanton MD [address] [place] [phone] Orthopedic Surgery 08/06/13 Chela Heaton MD [address] [place] [id number] Cardiology 08/06/13 Faby Rodriguez, RN Artificial Foliage Arranger 09/10/13
--- OUTSIDE RECORDS SUMMARY | 2024-07-15 15:02 | XMS_ITS | CONTINUITY OF CARE DOCUMENT ---
Author Name deloresmarti deloresmarti Address Unknown Organization [facility] Address [address] [place] [address] Phone [phone] Care Team Providers Care Systems Integration Analyst Name Role Phone Chela Heaton MD Unavailable Nish Martin MD Unavailable Nish Martin MD Unavailable PROBLEMS Condition Status Date Provider Notes Tobacco use, quit active Chela Heaton MD Dyslipidemia active Chela Heaton MD HTN essential active Chela Heaton MD HTN-12/10 NUC ISCHEMIA completed - Chela maciel MD HTN-05/14 AMNA DUP NEG active - Chela carson MD HEALTH MAINTENANCE EXAM active - Chela Heaton MD SVT-02/14 S/P ABLATION active Chela carson MD CARDIAC ARRHYTHMIA-05/18 COELLO ER SR HR 49-117 completed - Chela Heaton MD PVD - 09/18 UNSUCCESSFUL ATT EMPT TO OPEN R SFA active Chela Heaton MD BILATERAL SHOULDER SURGERY-R -, -2010 completed - Chela Heaton MD CHEST PAIN-TYPE TO BE DETERMINED completed - Chela Heaton MD Leg pain, bilateral completed - Chela Heaton MD Hypercholesterolemia completed - Chela Heaton MD Cardiology examination active Chela carson MD ENCOUNTERS Date Type Provider Location Encounter Diag nosis - In-person encounter Office Visit Chela Heaton MD [facility] Cardiology examination - In-person encounter Office Visit Chela Heaton MD [facility] - In-person encounter Office Visit Chela Heaton MD [facility] - In-person encounter Office Visit Chela Heaton MD [facility] - In-person encounter Office Visit Chela Heaton MD [facility] - In-person encounter Office Visit Chela Heaton [facility] - In-person encounter Office Visit Chela Heaton [facility] - In-person encounter Office Visit Chela Heaton MD [facility] - In-person encounter Office Visit Chela Heaton MD [facility] - In-person encounter Office Visit Chela Heaton MD [facility] DyslipidemiaHTN essentialBILATERAL SHOULDER JHOIBPO-Q-70, L-2011Leg pain, bilateral - In-person encounter Office Visit Chela Heaton MD [facility] - In-person encounter Office Visit Chela Heaton MD [facility] - In-person encounter Office Visit Chela Heaton MD [facility] - In-person encounter Office Visit Chela Heaton MD [facility] - In-person encounter Office Visit Chela [facility] - In-person encounter Office Visit Chela Heaton MD [facility] - In-person encounter Office Visit Chela Heaton MD [facility] - In-person encounter Office Visit Chela Heaton MD [facility] - In-person encounter Office Visit Chela Heaton MD [facility] Tobacco use, quitDyslipidemiaPVD - 09/18 UNSUCCESSFUL ATTEMPT TO OPEN R SFAHypercholesterolemia - In-person encounter Office Visit Chela Heaton MD [facility] - In-person encounter Office Visit Chela Heaton MD [facility] - In-person encounter Office Visit Chela Heaton MD [facility] - In-person encounter Office Visit Chela Heaton MD [facility] - In-person encounter Office Visit Chela Heaton MD [facility] - In-person encounter Office Visit Chela Heaton MD [facility] - In-person encounter Office Visit Chela Heaton MD [facility] SVT-02/14 S/P ABLATIONCARDIAC ARRHYTHMIA-05/18 HOLTER SR HR 49-117CHEST PAIN-TYPE TO BE DETERMINEDLeg pain, bilateral - In-person encounter Office Visit Rom Cohen MD [facility] - In-person encounter Office Visit Rom Cohen MD [facility] - In-person encounter Office Visit Chela Heaton MD [facility] - In-person encounter Office Visit Chela Heaton MD [facility] - In-person encounter Office Visit Chela Heaton MD [facility] HTN-12/10 NUC ISCHEMIAHTN-05/14 AMNA DUP NEGHEALTH MAINTENANCE EXAMPVD - 09/18 UNSUCCESSFUL ATTEMPT TO OPEN R SFA - In-person encounter Office Visit Joshua Quintero MD [facility] - In-person encounter Office Visit Joshua Quintero [facility] - In-person encounter Office Visit Joshua Quintero [facility] - In-person encounter Office Visit Chela Heaton MD [facility] - In-person encounter Office Visit Joshua Quintero MD [facility] SVT-02/14 S/P ABLATION - In-person encounter Office Visit Chela Heaton MD [facility] - In-person encounter Office Visit Chela Heaton MD [facility] Tobacco use, quit - In-person encounter Office Visit Chela Heaton MD [facility] DyslipidemiaHTN essential VITAL SIGNS Date Observation Value Provider Body Mass Index (Ratio) 31.32 kg/m2 Jim Rosas blood pressure, diastolic 91 mm[Hg] Jeremy Caraballo blood pressure, systolic 170 mm[Hg] Gina Caraballo oxygen saturation, oximetry 95 % Cherelle Caraballo pulse rate 71 /min Cherelle Caraballo respiratory rate E&M 12 /min Cherelle Caraballo weight E&M 244 [lb_av] Cherelle Caraballo height E&M 74 [in_i] Cherelle Caraballo blood pressure, cuff size regular An marianne Caraballo Body Mass Index (Ratio) 31.32 kg/m2 Latrice Heaton MD blood pressure, diastolic 66 mm[Hg] Li nkLogic blood pressure, systolic 156 mm[Hg] Lorraine kLogic pulse rate 62 /min Gael y blood pressure, diastolic 66 mm[Hg] Ja rret blood pressure, systolic 156 mm[Hg] Jar ret blood pressure, cuff size regular Ja rret oxygen saturation, oximetry 96 % Gael respiratory rate E&M 14 /min weight E&M 244 [lb_av] Gael y height E&M 74 [in_i] Gael y Body Mass Index (Ratio) 31.20 kg/m2 Latrice Heaton MD blood pressure, diastolic 78 mm[Hg] Li nkLogic blood pressure, systolic 144 mm[Hg] Lorraine blood pressure, cuff size regular Ja rret blood pressure, diastolic 78 mm[Hg] Ja rret blood pressure, systolic 144 mm[Hg] Jar ret pulse rate 63 /min Gael y respiratory rate E&M 12 /min Gael oxygen saturation, oximetry 97 % Gael weight E&M 243 [lb_av] Gael y height E&M 74 [in_i] Gael y Body Mass Index (Ratio) 31.71 kg/m2 Latrice Heaton MD blood pressure, diastolic 81 mm[Hg] Li nkLogic blood pressure, systolic 156 mm[Hg] Lorraine kLogic blood pressure, diastolic 81 mm[Hg] Kajal Granger blood pressure, systolic 156 mm[Hg] Tato mcmahon [place] weight E&M 247 [lb_av] Fabiola Radha ladd height E&M 74 [in_i] Fabiola Adamjeremy blake respiratory rate E&M 16 /min Maryse field [place] oxygen saturation, oximetry 98 % Fabiola Granger blood pressure, cuff size large Kajal whyte [place] Body Mass Index (Ratio) 31.97 kg/m2 Oriana vivien Alberto blood pressure, diastolic 107 mm[Hg] St jolieelia Israel blood pressure, systolic 195 mm[Hg] Sta erick Jhonatan oxygen saturation, oximetry 98 % Neeruerick Israel pulse rate 62 /min Neeruerick Israel respiratory rate E&M 18 /min Neeru mitchell weight E&M 249 [lb_av] Neeru Jhonatan height E&M 74 [in_i] Neeru Jhonatan Body Mass Index (Ratio) 31.71 kg/m2 Terrance bateman Nacht blood pressure, diastolic 82 mm[Hg] Li nkLogic blood pressure, systolic 169 mm[Hg] Lorraine kLogic blood pressure, diastolic 82 mm[Hg] Sa ra Boyd blood pressure, systolic 169 mm[Hg] Miriam a Boyd oxygen saturation, oximetry 96 % Grisel Boyd respiratory rate E&M 73 /min Grisel Si ms pulse rate 18 /min Grisel Obyd blood pressure, cuff size regular Sa ra Boyd weight E&M 247 [lb_av] Grisel Boyd height E&M 74 [in_i] Grisel Boyd Body Mass Index (Ratio) 31.71 kg/m2 Latrice Heaton MD blood pressure, diastolic 100 mm[Hg] Liana nkLogic blood pressure, systolic 164 mm[Hg] Lorraine kLogic blood pressure, cuff size regular Cy angelica Reeves blood pressure, diastolic 100 mm[Hg] Cy angelica Reeves blood pressure, systolic 164 mm[Hg] Suha arechiga Leandro oxygen saturation, oximetry 96 % Kenna Reeves respiratory rate E&M 16 /min Kenna Reeves pulse rate 57 /min Kenna Rodrigo l weight E&M 247 [lb_av] Kenna Jembel l height E&M 74 [in_i] Kenna Campbel l Body Mass Index (Ratio) 31.84 kg/m2 Brendan Gomez blood pressure, diastolic 80 mm[Hg] Bob Mathew blood pressure, systolic 164 mm[Hg] Tatianna Heaton MD oxygen saturation, oximetry 98 % Charlie Mathew respiratory rate E&M 16 /min Elaina Mathew pulse rate 75 /min CharlieCheyenne White amber weight E&M 248 [lb_av] Charlie White amber height E&M 74 [in_i] Charlie Steve amber Body Mass Index (Ratio) 32.09 kg/m2 Brendan Gomez blood pressure, diastolic 85 mm[Hg] Erick dominguez Leandro blood pressure, systolic 154 mm[Hg] Suha arechiga Leandro blood pressure, cuff size regular Cy angelica Leandro pulse rate 58 /min [place] yannick respiratory rate E&M 16 /min Kenna Leandro oxygen saturation, oximetry 96 % Kenna Leandro weight E&M 250 [lb_av] Kenna Rodrigo yannick height E&M 74 [in_i] Kenna Campbel l blood pressure, diastolic 80 mm[Hg] Br itttam Diego blood pressure, systolic 140 mm[Hg] Jacque samia Diego Body Mass Index (Ratio) 31.57 kg/m2 Oriana vivienelia Diego weight in kilograms E&M 111.36 kg [facility] weight E&M 245 [lb_av] Eduarda Brandie height E&M 74 [in_i] [facility] height in centimeters E&M 187.96 cm [facility] Brandie Body Mass Index (Ratio) 31.97 kg/m2 Latrice Heaton MD pulse rate 66 /min [facility] blood pressure, diastolic 80 mm[Hg] Kenney Diego blood pressure, systolic 170 mm[Hg] Jacque samia Diego oxygen saturation, oximetry 98 % [facility] weight E&M 249 [lb_av] Eduarda Brandie respiratory rate E&M 16 /min [facility] elia Diego height E&M 74 [in_i] Eduarda Block Body Mass Index (Ratio) 31.45 kg/m2 Latrice Heaton MD blood pressure, cuff size regular Erick Reeves blood pressure, diastolic 80 mm[Hg] Cy angelica Reeves blood pressure, systolic 140 mm[Hg] Suha hawk Reeves oxygen saturation, oximetry 95 % Kenna Reeves respiratory rate E&M 16 /min Kenna Reeves pulse rate 75 /min Kenna lanier weight E&M 245 [lb_av] Kenna Jembel l height E&M 74 [in_i] Kenna Parishbel l Body Mass Index (Ratio) 31.32 kg/m2 Latrice Heaton MD blood pressure, diastolic 90 mm[Hg] Sabino king Olsen blood pressure, systolic 140 mm[Hg] Chantel nye [facility] oxygen saturation, oximetry 98 % [facility] E&M 16 /min pulse rate 61 /min [facility] weight E&M 244 [lb_av] Thu Olsen height E&M 74 [in_i] [facility] Body Mass Index (Ratio) 31.07 kg/m2 Latrice Heaton MD blood pressure, diastolic 70 mm[Hg] Sabino [facility] blood pressure, systolic 138 mm[Hg] Chantel nye [facility] oxygen saturation, oximetry 96 % [facility] respiratory rate E&M 16 /min [facility] pulse rate 55 /min [facility] E&M 242 [lb_av] [facility] E&M 74 [in_i] [facility] Body Mass Index (Ratio) 32.09 kg/m2 Latrice Heaton MD blood pressure, diastolic 82 mm[Hg] [facility] O'Shantanu blood pressure, systolic 120 mm[Hg] [facility] O'Shantanu oxygen saturation, oximetry 96 % Lashawn O'Shantanu respiratory rate E&M 16 /min Lashawn O'Shantanu pulse rate 74 /min Lashawn O'Shantanu weight E&M 250 [lb_av] Lashawn O'Shantanu height E&M 74 [in_i] Lashawn O'Shantanu Body Mass Index (Ratio) 30.94 kg/m2 Kemar Crook pulse rate 58 /min Kenna lanier oxygen saturation, oximetry 97 % Kenna Reeves respiratory rate E&M 18 /min Kenna Reeves blood pressure, cuff size regular Cy angelica Reeves blood pressure, diastolic 80 mm[Hg] Cy angelica Reeves blood pressure, systolic 150 mm[Hg] Suha Reeves weight E&M 241 [lb_av] Kenna lanier height E&M 74 [in_i] Kenna lanier Body Mass Index (Ratio) 30.81 kg/m2 Latrice Heaton MD blood pressure, cuff size large Ke rri Gruenenfmerleneer blood pressure, diastolic 90 mm[Hg] Ke rri Gruenenfelder blood pressure, systolic 162 mm[Hg] Ker ri Jameluenenfelton oxygen saturation, oximetry 98 % Maribell Freedomneshelia respiratory rate E&M 20 /min Maribell G geraeneshelia pulse rate 59 /min Mraibell Graileenneadame gladiser weight E&M 240 [lb_av] Maribell Gruenenfe gladiser height E&M 74 [in_i] Maribell Graileenneadame gladiser Body Mass Index (Ratio) 30.68 kg/m2 Paramjit Poole blood pressure, cuff size large Ke rri Gruenenfelder blood pressure, diastolic 80 mm[Hg] Ke rri Gruenenfelder blood pressure, systolic 128 mm[Hg] Ker ri Gruenenfelton oxygen saturation, oximetry 97 % Maribell Jamelueneshelia respiratory rate E&M 18 /min Maribell G geraenenfeldbilly pulse rate 73 /min Maribell Gruenenfe lder weight E&M 239 [lb_av] Maribell Gruenenfe lder height E&M 74 [in_i] Maribell Gruenenfe gladiser Body Mass Index (Ratio) 30.12 kg/m2 Paramjit Poole blood pressure, diastolic 90 mm[Hg] Bob Mathew blood pressure, systolic 148 mm[Hg] Deya Mathew oxygen saturation, oximetry 98 % Charlie Mathew respiratory rate E&M 18 /min Elaina Mathew pulse rate 69 /min Charlie clark weight E&M 234.6 [lb_av] Charlie irvinon height E&M 74 [in_i] Charlie clark blood pressure, resting Yes Kemar Crook Body Mass Index (Ratio) 30.84 kg/m2 Kemar Crook blood pressure, diastolic 94 mm[Hg] Bob Mathew blood pressure, systolic 152 mm[Hg] Deya Mathew oxygen saturation, oximetry 95 % Charlie Mathew respiratory rate E&M 18 /min Elaina Mathew pulse rate 61 /min Charlie fuenteson weight E&M 240.2 [lb_av] Charlie [place] height E&M 74 [in_i] Charlie clark blood pressure, diastolic 89 mm[Hg] Bob Mathew blood pressure, systolic 153 mm[Hg] Deya Mathew pulse rate 72 /min Charlie clark oxygen saturation, oximetry 96 % Charlie Mathew respiratory rate E&M 18 /min Elaina Mathew Body Mass Index (Ratio) 31.20 kg/m2 Heather Mathew weight E&M 243 [lb_av] Charlie clark Body Mass Index (Ratio) 30.17 kg/m2 Latrice Heaton MD blood pressure, diastolic 89 mm[Hg] Remi Heaton MD blood pressure, systolic 155 mm[Hg] Tatianna Heaton MD oxygen saturation, oximetry 99 % Chela Heaton MD respiratory rate E&M 17 /min Lola Heaton MD pulse rate 59 /min Chela Heaton MD weight E&M 235 [lb_av] Chela Heaton MD Body Mass Index (Ratio) 30.43 kg/m2 Anea odalys Brown blood pressure, diastolic 88 mm[Hg] An eatris Brown blood pressure, systolic 159 mm[Hg] Ane atris Brown pulse rate 68 /min Aneatris Brown oxygen saturation, oximetry 98 % Aneatris Brown respiratory rate E&M 17 /min Aneatri s Brown weight E&M 237 [lb_av] Aneatris [facility] Body Mass Index (Ratio) 30.94 kg/m2 Murray i Cydney blood pressure, diastolic 90 mm[Hg] Mohinder chapmani Cydney blood pressure, systolic 140 mm[Hg] Rashel Lamas pulse rate 92 /min Maribell Salazar [facility] oxygen saturation, oximetry 95 % Maribell Lmaas respiratory rate E&M 16 /min Maribell urrutia weight E&M 241 [lb_av] Maribell Salazar er Body Mass Index (Ratio) 29.91 kg/m2 Anea odalys Brown blood pressure, diastolic, left arm 88 mm [Hg] Aneatris Brown blood pressure, systolic, left arm 148 mm [Hg] Aneatris Brown blood pressure, diastolic, right arm 83 m m[Hg] Aneatris Brown blood pressure, systolic, right arm 153 m m[Hg] Aneatris Brown blood pressure, diastolic 88 mm[Hg] An eatris Brown blood pressure, systolic 148 mm[Hg] Ane atris Tio pulse rate 57 /min Aneatris Tio oxygen saturation, oximetry 98 % Aneatris Tio respiratory rate E&M 17 /min Aneatri mary ellen Kinsey weight E&M 233 [lb_av] Thiago Kinsey Body Mass Index (Ratio) 30.58 kg/m2 Francisco Urbandney blood pressure, diastolic 99 mm[Hg] Paul Urbandney blood pressure, systolic 153 mm[Hg] Freddie Urbandney pulse rate 73 /min Ramya Urbandney oxygen saturation, oximetry 97 % Ramya Urbandney respiratory rate E&M 16 /min Ramya Urbandney weight E&M 238.2 [lb_av] Ramya Urbandney Body Mass Index (Ratio) 31.31 kg/m2 Marva Mueller blood pressure, diastolic, left arm 106 m m[Hg] Ana Mueller blood pressure, systolic, left arm 158 mm [Hg] Ana Mueller blood pressure, diastolic, right arm 110 mm[Hg] Ana Mueller blood pressure, systolic, right arm 160 m m[Hg] Ana Mueller blood pressure, diastolic 110 mm[Hg] Na becca Mueller blood pressure, systolic 160 mm[Hg] Rachael dee Mueller pulse rate 63 /min Ana Mueller oxygen saturation, oximetry 97 % Ana Mueller respiratory rate E&M 17 /min Ana Mueller weight E&M 243 [lb_av] Ana Mueller Body Mass Index (Ratio) 18.31 kg/m2 Willian Contreras blood pressure, diastolic 73 mm[Hg] Sandoval blood pressure, systolic 144 mm[Hg] Magan Contreras pulse rate 65 /min Anthony Alvarezran oxygen saturation, oximetry 97 % Anthony Contreras respiratory rate E&M 16 /min Anthony Alvarezran weight E&M 142.13 [lb_av] Anthony Alvarezr an height E&M 74 [in_i] Anthony Alvarezran Body Mass Index (Ratio) 39.58 kg/m2 Vivien a Stueber blood pressure, diastolic 72 mm[Hg] Alistair carbajal Stueber blood pressure, systolic 138 mm[Hg] Chris garnett Stueber pulse rate 65 /min Berkley Stueber oxygen saturation, oximetry 98 % Berkley Stueber respiratory rate E&M 16 /min Berkley Mary Ellen ramon weight E&M 237.0 [lb_av] Berkley Stueber height E&M 65 [in_i] Berkley Stueber blood pressure, diastolic 91 mm[Hg] Landon Spencer RN blood pressure, systolic 146 mm[Hg] Kartik Spencer RN pulse rate 85 /min Kartik Spencer RN oxygen saturation, oximetry 98 % Kartik Spencer RN respiratory rate E&M 16 /min Kartik dumas RN Body Mass Index (Ratio) 29.32 kg/m2 Kartik Spencer RN weight E&M 240 [lb_av] Kartik Spencer RN blood pressure, diastolic 65 mm[Hg] Landon Spencer RN blood pressure, systolic 131 mm[Hg] Kartik Spencer RN pulse rate 69 /min Kartik Spencer RN oxygen saturation, oximetry 94 % Kartik Spencer RN respiratory rate E&M 16 /min Kartik dumas RN weight E&M 243 [lb_av] Kartik Spencer RN height E&M 76 [in_i] Kartik Spencer RN blood pressure, diastolic 96 mm[Hg] Mohinder white Cydney blood pressure, systolic 148 mm[Hg] Rashel chris Lamas pulse rate 63 /min Maribell Martin lucas oxygen saturation, oximetry 96 % Maribell Lamas respiratory rate E&M 16 /min Maribell Enoch urrutia weight E&M 238.4 [lb_av] Maribell Bird conde blood pressure, diastolic 97 mm[Hg] Sandoval blood pressure, systolic 175 mm[Hg] Magan Contreras pulse rate 86 /min Anthony Contreras oxygen saturation, oximetry 99 % Anthony Contreras respiratory rate E&M 16 /min Anthony Contreras weight E&M 243 [lb_av] Anthony Contreras blood pressure, diastolic 94 mm[Hg] Sandoval blood pressure, systolic 149 mm[Hg] Magan Contreras pulse rate 62 /min Anthony Contreras oxygen saturation, oximetry 99 % Anthony Contreras respiratory rate E&M 16 /min Anthony Contreras weight E&M 233 [lb_av] Anthony Contreras blood pressure, diastolic 73 mm[Hg] Landon Spencer RN blood pressure, systolic 128 mm[Hg] Kartik Spencer RN pulse rate 61 /min Kartik Spencer RN oxygen saturation, oximetry 99 % Kartik Spencer RN respiratory rate E&M 16 /min Kartik dumas RN weight E&M 234 [lb_av] Kartik Spencer RN blood pressure, diastolic 105 mm[Hg] Landon Spencer RN blood pressure, systolic 142 mm[Hg] Kartik Spencer RN pulse rate 95 /min Kartik Spencer RN respiratory rate E&M 18 /min Kartik dumas RN weight E&M 234 [lb_av] Kartik Spencer RN blood pressure, diastolic 85 mm[Hg] Bob bhardwaj O'Shantanu blood pressure, systolic 136 mm[Hg] Deya antoine O'Shantanu pulse rate 83 /min Lashawn O'Shantanu oxygen saturation, oximetry 93 % Lashawn O'Shantanu respiratory rate E&M 18 /min Lashawn O'Shantanu weight E&M 234 [lb_av] Lashawn O'Shantanu oxygen saturation, oximetry 96 % Chen Weiss pulse rate, sitting, left 67 /min Ct estrella Weiss orthostatic blood pr essure, sitting, left arm, diastolic 102 Chen Weiss orthostatic blood pr essure, sitting, left arm, systolic 151 Chen Weiss pulse rate, sitting, right 69 /min C yamilka Weiss orthostatic blood pr essure, sitting, right arm, diastolic 99 Chen Weiss orthostatic blood pr essure, sitting, right arm, systolic 152 Chen Weiss height in centimeters E&M [address] estrella Weiss blood pressure, diastolic 86 mm[Hg] Landon Spencer RN blood pressure, systolic 148 mm[Hg] Kartik Spencer RN pulse rate 57 /min Kartik Spencer RN oxygen saturation, oximetry 97 % Kartik Spencer RN respiratory rate E&M 16 /min Kartik dumas RN weight E&M 235 [lb_av] Kartik Spencer RN blood pressure, diastolic 83 mm[Hg] Landon Spencer RN blood pressure, systolic 131 mm[Hg] Kartik Spencer RN pulse rate 76 /min Kartik Spencer RN oxygen saturation, oximetry 97 % Kartik Spencer RN respiratory rate E&M 16 /min Kartik Teddy rks RN weight E&M 224 [lb_av] Kartik Spencer RN ALLERGIES Allergy Name Onset Date Reaction Criticality Status IODINE Low Criticality active CODEINE Low Criticality active RESULTS Date Observation Value Provider Reference Range Interpretation Location ferritin, serum 329 ng/mL [facility] 30-400 hemoglobin A1C, blood, as % of total hemoglobin 5.7 % [facility] 4.8-5.6 High iron saturation percent, serum 35 % [facility] 15-55 iron, serum 84 ug/dL [facility] 38-169 iron binding capacity, unsaturated 153 ug/dL [facility] 037-113 5370/09/ 24 iron binding capacity, total 237 ug/dL [facility] 250-450 Low free thyroxine index 2.0 [facility] 1.2-4.9 triiodothyronine resin uptake 25 % [facility] 24-39 thyroxine, serum, total 8.0 ug/dL [facility] 4.5-12.0 thyroid stimulating hormone, serum 1.840 u[IU]/mL [facility] 0.450-4.500 lipoprotein, beta, serum, point, quantitative, calculated 86 mg/dL [facility] 0-99 HDL cholesterol, serum 40 mg/dL [facility] >39 triglyceride, serum, random 46 mg/dL [facility] 0-149 cholesterol, serum 136 mg/dL [facility] 222-118 3711/09/ 24 alanine aminotransferase (SGPT), serum 22 1/L [facility] 0-44 aspartate aminotransferase (SGOT), serum 20 1/L [facility] 0-40 alkaline phosphatase, serum 118 1/L [facility] 44-121 bilirubin, serum, total 0.4 mg/dL [facility] 0.0-1.2 albumin/globulin ratio, serum 1.4 [facility] 1.2-2.2 globulin, serum 2.9 [facility] 1.5-4.5 albumin, serum 4.0 g/dL [facility] 3.8-4.8 protein, total, serum 6.9 g/dL [facility] 6.0-8.5 calcium, serum 9.1 mg/dL [facility] 8.6-10.2 carbon dioxide, venous blood 23 mmol/L [facility] 20-29 chloride, serum 105 mmol/L [facility] 96-106 potassium, serum 4.9 mmol/L [facility] 3.5-5.2 sodium, serum 140 mmol/L [facility] [phone]/09/ 24 urea nitrogen/creatinine ratio, serum 18 [facility] 10-24 eGFR if 86 mL/min/{ 1.73_m2} [facility] >59 eGFR if not 74 mL/min/{ 1.73_m2} [facility] >59 creatinine, serum 1.03 mg/dL [facility] 0.76-1.27 urea nitrogen, blood 19 mg/dL [facility] 8-27 blood glucose, random 85 mg/dL [facility] 65-99 basophil count, absolute 0.1 x10E3/uL [facility] 0.0-0.2 Eosinophil Absolute Count 0.3 X10E3/UL [facility] 0.0-0.4 monocyte count, blood, automated 0.7 X10E3/UL [facility] 0.1-0.9 lymphocyte count, blood, automated 1.9 X10E3/UL [facility] 0.7-3.1 Absolute Neutrophils 3.5 X10E3/UL [facility] 1.4-7.0 basophils as percent of blood leukocytes 1 % [facility] Not Estab. eosinophils as percent of blood leukocytes 5 % [facility] Not Estab. monocytes as percent of blood leukocytes 11 % [facility] Not Estab. lymphocytes as percent of blood leukocytes 29 % [facility] Not Estab. neutrophils as percent of blood leukocytes 54 % [facility] Not Estab. platelet count 203 X10E3/UL [facility] 251-568 2927/09/ 24 red blood cell distribution width 13.7 % [facility] 11.6-15.4 mean corpuscular hemoglobin concentration, RBC 33.4 G/DL [facility] 31.5-35.7 mean corpuscular hemoglobin, RBC 29.7 pg [facility] 26.6-33.0 mean corpuscular volume, RBC 89 fL [facility] 79-97 hematocrit, blood 40.7 % [facility] 37.5-51.0 hemoglobin, blood 13.6 g/dL [facility] 13.0-17.7 erythrocyte (RBC) count 4.58 X10E6/UL [facility] 4.14-5.80 leukocyte count, blood 6.6 X10E3/UL [facility] 3.4-10.8 international normalized ratio (INR) 1.05 RATIO [facility] 0.81-1.21 [place] [facility] [address] Christopher Alonso prothrombin time (patient) 13.6 s [facility] 11.5-15.5 [place] [address] Christopher Alonso basophils, absolute, manual 0.06 K/UL [facility] 0.0-0.1 [place] [address] Christopher Alonso basophils as percent of blood leukocytes 0.9 % [facility] 0.3-0.9 [place] [address] Christopher Alonso eosinophils, absolute, manual 0.23 K/UL [facility] 0.1-0.5 [place] [address] Christopher Gavin eosinophils as percent of blood leukocytes 3.4 % [facility] 1.1-7.6 [place] [address] Christopher Gavin [phone] monocyte count, blood 0.72 10*3/mm3 [facility] 0.2-0.7 [place] [address] Christopher Gavin monocytes as percent of blood leukocytes 10.6 % [facility] 4.2-11.2 [place] [address] Christopher Gavin lymphocytes as percent of blood leukocytes 2.11 K/UL [facility] 0.6-3.4 [place] [facility] [address] Christopher Alonso lymphocytes, absolute 31.2 % [facility] 19.8-46.2 [place] [address] Christopher Gavin neutrophil count, absolute 3.64 K/uL [facility] 1.9-5.9 [place] [address] Christopher Gavin neutrophils as percent of blood leukocytes 53.9 % [facility] 42.7-72.4 [place] [address] Christopher Gavin [phone] mean platelet volume 9.8 % [facility] 7.4-9.9 [place] [address] Christopher Gavin [phone] red blood cell distribution width 12.0 % [facility] 10.9-14.6 [place] [address] Christopher Gavin platelet count 223 10*3/mm3 [facility] 165-429 [place] [address] Christopher Gavin mean corpuscular hemoglobin concentration, RBC 34.1 % [facility] 32.5-34.5 [place] [address] Christopher Gavin [phone] mean corpuscular hemoglobin, RBC 30.8 pg [facility] 21.5-33.3 [place] [address] Christopher Gavin mean corpuscular volume, RBC 90 fL [facility] 76-98 [place] [address] Christopher Gavin [phone] hematocrit, blood 40.2 % [facility] 34.4-47.3 [place] [address] Christopher Gavin hemoglobin, blood 13.8 g/dL [facility] 12.5-17.2 [place] [address] Christopher Gavin erythrocyte (RBC) count 4.47 M/UL [facility] 3.8-5.5 [place] [address] Christopher Gavin leukocyte count, blood 6.8 10*3/mm3 [facility] 3.7-8.9 [place] [address] Christopher Gavin LDL/HDL (low-density lipoprotein/high-de nsity lipoprotein) ratio 1.9 RATIO [facility] 0.2-4.3 [place] [address] Christopher Alonso VLDL cholesterol 17 mg/dL [facility] 8-41 [place] [address] Christopher Gavin [phone] lipoprotein, beta, serum, point, quantitative, calculated 84 mg/dL [facility] 0-130 [place] [address] Christopher Alonso cholesterol/HDL ratio, serum, percent 3.3 ratio [facility] 1.5-5.6 [place] [address] Christopher Alonso HDL cholesterol, serum 44 mg/dL [facility] 55 [place] [address] Christopher Alonso triglyceride, serum, fasting 83 mg/dL [facility] [place] [address] Christopher Gavin cholesterol, serum 145 mg/dL [facility] 0-199 [place] [address] Christopher Gavin calcium, serum 9.2 mg/dL [facility] 8.6-10.0 [place] [address] Christopher Gavin blood glucose, random 97 mg/dL [facility] 74-109 [place] [address] Christopher Gavin [phone] eGFR if 111 mL/min/{ 1.73_m2} [facility] >60 [place] [address] Christopher Gavin eGFR if not 91 mL/min/{ 1.73_m2} [facility] >60 [place] [address] Christopher Gavin [phone] urea nitrogen/creatinine ratio, serum 27.8 ratio [facility] 8.0-25.0 [place] [address] Christopher Gavin creatinine, serum 0.9 mg/dL [facility] 0.70-1.20 [place] [address] Christopher Gavin urea nitrogen, blood 25 mg/dL [facility] 6-20 [place] [address] Christopher Gavin carbon dioxide, venous blood 25 mmol/L [facility] 22-29 [place] [address] Christopher Gavin chloride, serum 103 MEQ/L [facility] 98-107 [place] [address] Christopher Gavin [phone] potassium, serum 4.3 MEQ/L [facility] 3.5-5.1 [place] [address] Christopher Alonso [phone] sodium, serum 139 MEQ/L [facility] 136-145 [place] [address] Christopher Alonso [phone] platelet count 221 10*3/mm3 [facility] hematocrit, blood 40.7 % [facility] international normalized ratio (INR) 1.0 [facility] creatinine, serum 1.08 mg/dL [facility] potassium, serum 4.4 mmol/L [facility] sodium, serum 144 mmol/L [facility] lipoprotein, beta, serum, point, quantitative, calculated 86 mg/dL [facility] cholesterol, serum 142 mg/dL [facility] alanine aminotransferase (SGPT), serum 21 1/L [facility] aspartate aminotransferase (SGOT), serum 22 1/L [facility] creatinine, serum 0.87 mg/dL [facility] potassium, serum 4.6 mmol/L [facility] sodium, serum 142 mmol/L [facility] prothrombin time (patient) 10.7 s [facility] international normalized ratio (INR) 1.0 [facility] blood glucose, fasting 117 mg/dL [facility] creatinine, serum 0.94 mg/dL [facility] urea nitrogen, blood 18 mg/dL [facility] carbon dioxide, serum, total 26 mmol/L [facility] chloride, serum 108 mmol/L [facility] potassium, serum 4.2 mmol/L [facility] sodium, serum 142 mmol/L [facility] platelet count 223 10*3/uL [facility] hematocrit, blood 39.9 % [facility] hemoglobin, blood 13.4 g/dL [facility] erythrocyte (RBC) count 4.56 10*6/mm3 Heather Beauchamp RN leukocyte count, blood 5.9 10*3/mm3 Heather Beauchamp RN international normalized ratio (INR) 1.0 [facility] platelet count 223 10*3/mm3 [facility] hematocrit, blood 39.9 % [facility] creatinine, serum 0.94 mg/dL Bernie Loomis potassium, serum 4.2 mmol/L [facility] Vladislav sodium, serum 142 mmol/L [facility] Vladislav HISTORY OF MEDICATION USE Medication Status Instructions Dates Provider Indications Com ments amlodipine 10 mg tablet active 1 tablet by mouth once a day Chela Heaton MD Edarbi 80 mg tablet active TAKE 1 TABLET BY MOUTH DAILY [facility] Edarbi 80 mg tablet completed Take 1 tablet by mouth once a day TAKE 1 TABLET BY MOUTH ONCE DAILY - [facility] Iron (ferrous sulfate) 325 mg (65 mg iron) tablet active Take 1 tablet by mouth once a day [facility] Farxiga 10 mg tablet active Take 1 tablet by mouth once a day [facility] Edarbi 80 mg tablet completed TAKE 1 TABLET BY MOUTH ONCE DAILY - Chela Heaton MD atorvastatin 20 mg tablet active TAKE 1 TABLET BY MOUTH DAILY Fabiola Granger chlorthalidone 25 mg tablet completed TAKE ONE-HALF TABLET BY MOUTH ONCE DAILY - Chela Heaton MD chlorthalidone 25 mg tablet completed 1/2 tablet by mouth once a day - Fabiola Granger amlodipine 5 mg tablet completed 1 tablet by mouth once a day - Chela Heaton MD Edarbi 80 mg tablet completed Take 1 tablet by mouth once a day TAKE 1 TABLET BY MOUTH ONCE DAILY - Fabiola Granger Edarbi 80 mg tablet completed TAKE 1 TABLET BY MOUTH ONCE DAILY - Chela Heaton MD metoprolol tartrate 25 mg tablet active TAKE 1 TABLET BY MOUTH TWICE DAILY Gael Baiboone atorvastatin 20 mg tablet completed TAKE 1 TABLET BY MOUTH DAILY - Fabiola Elkin Edarbi 80 mg tablet completed Take 1 tablet by mouth once a day - Marleni Galo metoprolol tartrate 25 mg tablet completed 1 tablet twice a day - Kathi Mosteverita BIDIL 20-37.5 MG ORAL TABLET completed One half tablet twice daily - Maribell Lamas VITAMIN C TABLET active once a day Kailey Mathew vitamin E 1,000 unit capsule active once a day Kenna Reeves MULTIVITAMINS CAPS active 1 tablet once a day Kenna Reeves AMIODARONE HCL TABLET completed 200mg twice daily for 10 days then 1 tab daily - Anthony Contreras aspirin 325 mg tablet active 1 tablet once a day Kenna Reeves EFFIENT 10 MG ORAL TABLET completed One tablet daily - Chela Heaton MD atorvastatin 20 mg tablet completed Take 1 tablet by mouth once a day - Chela Heaton MD LIPITOR 10 MG ORAL TABLET completed ONE TAB. DAILY - Lashawn Wise LOSARTAN POTASSIUM 100 MG ORAL TABLET completed one tab daily - Chela Heaton MD SOCIAL HISTORY Date Observation Value Provider drug use no Chela Heaton MD alcohol use no Chela Heaton MD passive cigarette sm sandra exposure no Chela Heaton MD smoking, year quit 2007 Chela Heaton MD number of years as a smoker 10 a Chela Heaton MD smoking, date started 1997 Gillian Heaton MD smoking history, tot al pack/year 5 Chela eHaton MD smoking history, tot al pack/day 1/2 Chela Heaton MD cigarette use yes Chela Heaton MD smoking status Former smoker Chela maciel MD drug use no Chela Heaton MD alcohol use no Chela Heaton MD passive cigarette sm sandra exposure no Chela Heaton MD smoking, year quit 2007 Chela Heaton MD number of years as a smoker 10 a Chela Heaton MD smoking, date started 1997 Gillian Heaton MD smoking history, tot al pack/year 5 Chela Heaton MD smoking history, tot al pack/day 1/2 Chela Heaton MD cigarette use yes Chela Heaton MD smoking status Former smoker Chela maciel MD drug use no Chela Heaton MD alcohol use no Chela Heaton MD passive cigarette sm sandra exposure no Chela Heaton MD smoking, year quit 2007 Chela Heaton MD number of years as a smoker 10 a Chela Heaton MD smoking, date started 1997 Gillian Heaton MD smoking history, tot al pack/year 5 Chela Heaton MD smoking history, tot al pack/day 1/2 Chela Heaton MD cigarette use yes Chela Heaton MD smoking status Former smoker Chela maciel MD drug use no Chela Heaton MD alcohol use no Chela Heaton MD social history revie wed E&M reviewed - no changes required Chela Heaton MD social history E&M Marital Statu s: L earlene with family/friends E thnicity: Smoking History: P juan is a former smoker. Chela Heaton MD exercise type WALKING AT WORK Fabiola hernandez caffeine use, averag e drinks per day 1+ Fabiola Granger passive cigarette sm sandra exposure no Fabiola Granger smoking, year quit 2007 Fabiola Granger number of years as a smoker 10 a Fabiola Granger smoking, date started 1997 Ahmet Bess smoking history, tot al pack/year 5 Fabiola Granger smoking history, tot al pack/day 1/2 Fabiola Granger cigarette use yes Fabiola Palacios paige smoking status Former smoker Fabiola mixon social history E&M Marital Statu s: L earlene with family/friends E thnicity: Smoking History: P atxin is a former smoker. Chela Heaton MD social history revie wed E&M reviewed - no changes required Chela Heaton MD exercise type WALKING AT WORK Neeru Israel caffeine use, averag e drinks per day 1+ Neeru Israel passive cigarette sm sandra exposure no Neeru Israel smoking, year quit 2007 Neeru mason number of years as a smoker 10 a Neeru Israel smoking, date started 1997 Neeru Israel smoking history, tot al pack/year 5 Neeru Israel smoking history, tot al pack/day 1/2 Neeru Israel cigarette use yes Neeru Israel smoking status Former smoker Neeru Israel social history E&M Marital Statu s: L earlene with family/friends E thnicity: Smoking History: P juan is a former smoker. Odilon Blancas exercise type WALKING AT WORK Odilon Blancas caffeine use, averag e drinks per day 1+ Odilon Ankitat passive cigarette sm sandra exposure no Odilon Ankitakristen smoking/tobacco cess ation, patient education and counseling contraindicated Odilon Nacht smoking, year quit 2007 Odilon Emilia ht number of years as a smoker 10 a Odilon Ankitat smoking, date started 1997 Odilon Ankitat smoking history, tot al pack/year 5 Odilon Ankitat smoking history, tot al pack/day 1/2 Odilon Ankitat cigarette use yes Odilon Ankitat smoking status Former smoker Odilon Yonny social history revie wed E&M reviewed - no changes required Odilon Blancas social history E&M Marital Statu s: L earlene with family/friends E thnicity: Smoking History: P atient is a former smoker. Chela Heaton MD social history revie wed E&M reviewed - no changes required Chela Heaton MD exercise type WALKING AT WORK Kenna jo caffeine use, averag e drinks per day 1+ Kenna Reeves passive cigarette sm sandra exposure no Kenna Reeves smoking, year quit 2007 Kenna marie number of years as a smoker 10 a Kenna Reeves smoking, date started 1997 Keren Reeves smoking history, tot al pack/year 5 Kenna Reeves smoking history, tot al pack/day 1/2 Kenna Reeves cigarette use yes Kenna day smoking status Former smoker Kenna witt social history E&M Marital Statu s: L earlene with family/friends E thnicity: Smoking History: P atient is a former smoker. Chela Heaton MD social history revie wed E&M reviewed - no changes required Chela Heaton MD exercise type WALKING AT WORK Charlie gaviria caffeine use, averag e drinks per day 1+ Charlie Mathew passive cigarette sm sandra exposure no Charlie Mathew smoking, year quit 2007 Charlie Mathew number of years as a smoker 10 a Charlie Mathew smoking, date started 1997 Prudencio Mathew smoking history, tot al pack/year 5 Charlie Mathew smoking history, tot al pack/day 1/2 Charlie Mathew cigarette use yes Charlie [place] smoking status Former smoker Charlie Salazar social history E&M Marital Statu s: L earlene with family/friends E thnicity: Smoking History: P atient is a former smoker. Leonel Gomez social history revie wed E&M reviewed - no changes required Leonel Gomez exercise type WALKING AT WORK Kenna jo caffeine use, averag e drinks per day 1+ Kenna Reeves passive cigarette sm sandra exposure no Kenna Reeves smoking, year quit 2007 Kenna marie number of years as a smoker 10 a Kenna Reeves smoking, date started 1997 Keren Reeves smoking history, tot al pack/year 5 Kenna Reeves smoking history, tot al pack/day 1/2 Kenna Reeves cigarette use yes Kenna day smoking status Former smoker Kenna witt social history E&M Marital Statu s: L earlene with family/friends E thnicity: Smoking History: P atient is a former smoker. Chela Heaton MD social history revie wed E&M reviewed - no changes required Chela Heaton MD exercise type WALKING AT WORK Eduarda Bl ock caffeine use, averag e drinks per day 1+ Edurada Brandie passive cigarette sm sandra exposure no Eduarda Brandie smoking, year quit 2007 [facility] number of years as a smoker 10 a Eduarda Brandie smoking, date started 1997 [facility] Brandie smoking history, tot al pack/year 5 [facility] smoking history, tot al pack/day 1/2 Eduarda Brandie cigarette use yes [facility] Brandie smoking status Former smoker Eduarda Johnson ck social history E&M Marital Statu s: L earlene with family/friends E thnicity: Smoking History: P atient is a former smoker. Chela Heaton MD social history revie wed E&M reviewed - no changes required Chela Heaton MD exercise type WALKING AT WORK Kenna jo caffeine use, averag e drinks per day 1+ Kenna Reeves passive cigarette sm sandra exposure no Kenna Reeves smoking, year quit 2007 Kenna marie number of years as a smoker 10 a Kenna Reeves smoking, date started 1997 Keren Reeves smoking history, tot al pack/year 5 Kenna Reeves smoking history, tot al pack/day 1/2 Kenna Reeves cigarette use yes Kenna day smoking status Former smoker Kenna witt social history E&M Marital Statu s: L earlene with family/friends E thnicity: Smoking History: P atient is a former smoker. Chela Heaton MD social history revie wed E&M reviewed - no changes required Chela Heaton MD exercise type WALKING AT WORK Thu Ing kota alcohol counseling no Thu I ngram In the past 3 months , have you been waking up wanting to use drugs? (CAGE substance use question #4) N [facility] In the past 3 months , have you felt guilty or bad about using drugs? (CAGE substance use question #3) N [facility] In the past 3 months , has anyone annoyed you by telling you to cut down or stop using drugs? (CAGE substance use question #2) N [facility] In the past 3 months , have you felt you should cut down or stop using drugs?(CAGE substance use question #1) N [facility] alcohol use, average drinks per day [facility] caffeine use, averag e drinks per day 1+ [facility] drug use no [facility] passive cigarette sm sandra exposure no [facility] smoking, year quit 2007 [facility] number of years as a smoker 10 a [facility] smoking, date started 1997 n [facility] smoking history, tot al pack/year 5 am smoking history, tot al pack/day 1/2 [facility] cigarette use yes [facility] smoking status Former smoker [facility] social history E&M Marital Statu s: L earlene with family/friends E thnicity: Smoking History: Tomeka martinez is a former smoker. Chela Heaton MD social history revie wed E&M reviewed - no changes required Chela Heaton MD exercise type WALKING AT WORK [facility] Carrie kota alcohol counseling no Thu franco In the past 3 months , have you been waking up wanting to use drugs? (CAGE substance use question #4) N [facility] In the past 3 months , have you felt guilty or bad about using drugs? (CAGE substance use question #3) N [facility] In the past 3 months , has anyone annoyed you by telling you to cut down or stop using drugs? (CAGE substance use question #2) N [facility] In the past 3 months , have you felt you should cut down or stop using drugs?(CAGE substance use question #1) N [facility] alcohol use, average drinks per day 1 /d [facility] alcohol use no [facility] caffeine use, averag e drinks per day 1+ [facility] drug use no [facility] passive cigarette sm sandra exposure no [facility] smoking, year quit 2007 [facility] number of years as a smoker 10 a [facility] smoking, date started 1997 n [facility] smoking history, tot al pack/year 5 [facility] smoking history, tot al pack/day 1/2 [facility] cigarette use yes [facility] smoking status Former smoker [facility] social history E&M Marital Statu s: L earlene with family/friends E thnicity: Smoking History: Tomeka martinez is a former smoker. Chela Heaton MD social history revie wed E&M reviewed - no changes required Chela Heaton MD exercise type WALKING AT WORK Lashawn ratliff alcohol counseling no Lashawn Fournier In the past 3 months , have you been waking up wanting to use drugs? (CAGE substance use question #4) N Lashawn Wise In the past 3 months , have you felt guilty or bad about using drugs? (CAGE substance use question #3) N Lashawn Wise In the past 3 months , has anyone annoyed you by telling you to cut down or stop using drugs? (CAGE substance use question #2) Kemi Wise In the past 3 months , have you felt you should cut down or stop using drugs?(CAGE substance use question #1) N Lashawn Wise alcohol use, average drinks per day 1 /d Lashwanmalachi Wise alcohol use no Lashawnmalachi Wise caffeine use, averag e drinks per day 1+ Lashawnmalachi Wise drug use no Lasahwnmalachi Wise passive cigarette sm sandra exposure no Lashawnmalachi Wise smoking, year quit 2007 Lashawnmalachi Fournier number of years as a smoker 10 a Lashawnmalachi Wise smoking, date started 1997 Lashawnmalachi Wise smoking history, tot al pack/year 5 Lashawnmalachi Wise smoking history, tot al pack/day 1/2 Lashawnmalachi Wise cigarette use yes Lashwanmalachi Wise smoking status Former smoker Lashawn Nolen l smoking history, tot al pack/year 5 Chela Heaton MD social history revie wed E&M reviewed - no changes required Chela Heaton MD social history E&M Marital Statu s: L earlene with family/friends E thnicity: Smoking History: Tomeka martinez is a former smoker. Chela Heaton MD exercise type WALKING AT WORK Kenna jo alcohol counseling no Kenna marie In the past 3 months , have you been waking up wanting to use drugs? (CAGE substance use question #4) Kemi Reeves In the past 3 months , have you felt guilty or bad about using drugs? (CAGE substance use question #3) Kemi Reeves In the past 3 months , has anyone annoyed you by telling you to cut down or stop using drugs? (CAGE substance use question #2) Kemi Reeves In the past 3 months , have you felt you should cut down or stop using drugs?(CAGE substance use question #1) N Kenna Reeves alcohol use, average drinks per day 1 /d Kenna Reeves alcohol use no Kenna lanier caffeine use, averag e drinks per day 1+ Kenna eReves drug use no Kenna lanier passive cigarette sm sandra exposure no Kenna Reeves smoking, year quit 2007 Kennamalachi marie number of years as a smoker 10 a Kenna Reeves smoking, date started 1997 Suh[place] ly Reeves smoking history, tot al pack/day / Kenna Reeves cigarette use yes Kenna Everett shay smoking status Former smoker Kenna Jem witt social history E&M Marital Statu s: L earlene with family/friends E thnicity: Smoking History: Tomeka juan is a former smoker. Chela Heaton MD social history revie wed E&M reviewed - no changes required Chela Heaton MD exercise type WALKING AT WORK Maribell quinteros alcohol counseling no Maribell thomas In the past 3 months , have you been waking up wanting to use drugs? (CAGE substance use question #4) N Maribell Lamas In the past 3 months , have you felt guilty or bad about using drugs? (CAGE substance use question #3) Kemi Lamas In the past 3 months , has anyone annoyed you by telling you to cut down or stop using drugs? (CAGE substance use question #2) Kemi Lamas In the past 3 months , have you felt you should cut down or stop using drugs?(CAGE substance use question #1) N Maribell Lamas alcohol use, average drinks per day 1 /d Maribell Lamas alcohol use no Maribell Salazar lance caffeine use, averag e drinks per day 1+ Maribell Lamas drug use no Maribell Salazar lance passive cigarette sm sandra exposure no Maribell Lamas smoking, year quit 2007 Maribell wallacebilly number of years as a smoker 10 a Maribell Lamas smoking, date started 1997 Maribell Lamas smoking history, tot al pack/year 1995 Maribell Lamas smoking history, tot al pack/day 05/08 Maribell Lamas cigarette use yes Maribell Pang elton smoking status Former smoker Maribell medinaelton social history revie wed E&M reviewed - no changes required Chela Heaton MD exercise type WALKING AT WORK [facility] In the past 3 months , have you been waking up wanting to use drugs? (CAGE substance use question #4) N Maribell Lamas In the past 3 months , have you felt guilty or bad about using drugs? (CAGE substance use question #3) N Maribell Lamas In the past 3 months , has anyone annoyed you by telling you to cut down or stop using drugs? (CAGE substance use question #2) N Maribell Lamas In the past 3 months , have you felt you should cut down or stop using drugs?(CAGE substance use question #1) N Maribell Lamas alcohol use, average drinks per day 1 /d Maribell Lamas alcohol use no Maribell Salazar lance caffeine use, averag e drinks per day 1+ Maribell Lamas drug use no Maribell Salazar gladiser passive cigarette sm sandra exposure no Maribell Lamas smoking, year quit 2007 Maribell thomas number of years as a smoker 10 a Maribell Lmaas smoking, date started 1997 Maribell Lamas smoking history, tot al pack/year 1995 Maribell Lamas smoking history, tot al pack/day 05/08 Maribell Lamas cigarette use yes Maribell conde smoking status Former smoker Maribell medinaelton number of grandchildren Chela Heaton MD social history revie wed E&M reviewed - no changes required Chela Heaton MD exercise type WALKING AT WORK Charlie gaviria alcohol counseling no Charlie Mathew In the past 3 months , have you been waking up wanting to use drugs? (CAGE substance use question #4) N Charlie Mathew In the past 3 months , have you felt guilty or bad about using drugs? (CAGE substance use question #3) N Charlie Mathew In the past 3 months , has anyone annoyed you by telling you to cut down or stop using drugs? (CAGE substance use question #2) N Charlie Mathew In the past 3 months , have you felt you should cut down or stop using drugs?(CAGE substance use question #1) N Charlie Mathew alcohol use, average drinks per day 1 /d Charlie Mathew alcohol use no Charlie clark caffeine use, averag e drinks per day 1+ Charlie Mathew drug use no Charlie clark passive cigarette sm sandra exposure no Charlie Mathew smoking, year quit 2007 Charlie Mathew number of years as a smoker 10 a Charlie Mathew smoking, date started 1997 Prudencio Mathew smoking history, tot al pack/year 1995 Charlie Mathew smoking history, tot al pack/day 05/08 Charlie Mathew cigarette use yes Charlie washington smoking status Former smoker Charlie Salazar smoking, date started 1997 Cedric Santos social history revie wed E&M reviewed - no changes required [facility] social history E&M Marital Statu s: L earlene with family/friends E thnicity: Smoking History: Tomeka martinez is a former smoker. Chela Heaton MD exercise type WALKING AT WORK Charlie villegasfelix alcohol counseling no Charlie Mathew In the past 3 months , have you been waking up wanting to use drugs? (CAGE substance use question #4) N Charlie Mathew In the past 3 months , have you felt guilty or bad about using drugs? (CAGE substance use question #3) N Charlie Mathew In the past 3 months , has anyone annoyed you by telling you to cut down or stop using drugs? (CAGE substance use question #2) N Charlie Mathew In the past 3 months , have you felt you should cut down or stop using drugs?(CAGE substance use question #1) N Charlie Quincy alcohol use, average drinks per day 1 /d Charlie Mathew alcohol use no Charlie White alfredomichelle caffeine use, averag e drinks per day 1+ [facility] Charlie White amber passive cigarette sm sandra exposure no Charlei Mathew smoking, year quit 2007 Charlie Mathew number of years as a smoker 10 a Charlie Mathew smoking history, tot al pack/day 1/2 Charlie Estevesenson cigarette use yes Charlie Danielito felix smoking status Former smoker Charlie Salazar smoking history, tot al pack/year 1995 Heather Lewis RN social history E&M Marital Statu s: L earlene with family/friends E thnicity: Smoking History: Tomeka martinez is a former smoker. Chela Heaton MD social history revie wed E&M reviewed - no changes required Chela Heaton MD exercise type WALKING AT WORK Charlie gaviria alcohol counseling no Charlie Mathew In the past 3 months , have you been waking up wanting to use drugs? (CAGE substance use question #4) N Charlie Mathew In the past 3 months , have you felt guilty or bad about using drugs? (CAGE substance use question #3) N Charlie Mathew In the past 3 months , has anyone annoyed you by telling you to cut down or stop using drugs? (CAGE substance use question #2) N Charlie Estevesenson In the past 3 months , have you felt you should cut down or stop using drugs?(CAGE substance use question #1) N Charlie Estevesenson alcohol use, average drinks per day 1 /d Charlie Mathew alcohol use no Charlie clark caffeine use, averag e drinks per day yes Charlie Estevesenson drug use no Charlie Estevese amber passive cigarette sm sandar exposure no Charlie Estevesenson smoking, year quit 2007 Charlie Mathew number of years as a smoker 10 a Charlie Mathew smoking, date started HeatherCristo keegan Mathew smoking history, tot al pack/year 10 Charlie Mathew smoking history, tot al pack/day 1/2 Charlie Mathew cigarette use yes Charlie washington smoking status Former smoker Charlie Salazar smoking/tobacco cess ation, patient education and counseling No Chela Heaton MD smoking status Former smoker Chela maciel MD social history revie wed E&M reviewed - no changes required Chela Heaton MD social history E&M Marital Statu s: L earlene with family/friends E thnicity: Smoking History: P atient is a former smoker. Chela Heaton MD smoking/tobacco cess ation, patient education and counseling No Chela Heaton MD social history revie wed E&M reviewed - no changes required Chela Heaton MD smoking status Former smoker Thiago Waldrop gaye social history E&M Marital Statu s: L earlene with family/friends E thnicity: Smoking History: P atient is a former smoker. Chela Heaton MD smoking/tobacco cess ation, patient education and counseling No Chela Heaton MD social history revie wed E&M reviewed - no changes required Chela Heaton MD alcohol use no Maribell lucas smoking, date started 20 Maribell Lamas smoking history, tot al pack/day 1/2 Maribell Lamas smoking, year quit 2007 Maribell thomas cigarette use yes Maribell conde smoking status Former smoker Maribell bass smoking, year quit 2007 Chela Heaton MD number of years as a smoker 10 a Chela Heaton MD cigarette use yes Chela Heaton MD exercise type WALKING AT WORK Chela figueroa MD alcohol counseling no Chela Heaton MD In the past 3 months , have you been waking up wanting to use drugs? (CAGE substance use question #4) Kemi Heaton MD In the past 3 months , have you felt guilty or bad about using drugs? (CAGE substance use question #3) Kemi Heaton MD In the past 3 months , has anyone annoyed you by telling you to cut down or stop using drugs? (CAGE substance use question #2) Kemi Heaton MD In the past 3 months , have you felt you should cut down or stop using drugs?(CAGE substance use question #1) Kemi Heaton MD alcohol use, average drinks per day 1 /d Chela Heaton MD caffeine use, averag e drinks per day yes Chela Heaton MD drug use no Chela Heaton MD passive cigarette sm sandra exposure no Chela Heaton MD smoking/tobacco cess ation, patient education and counseling yes Chela Heaton MD smoking status Former smoker Chela maciel MD social history revie wed E&M reviewed - no changes required Chela Heaton MD smoking status Never smoker Ramya Pineda elia social history revie wed E&M reviewed Kartik Spencer RN social history revie wed E&M reviewed Kartik Spencer RN exercise type WALKING AT WORK Anthony wilkes alcohol counseling no Anthony toscano social history revie wed E&M reviewed Rom Cohen MD social history revie wed E&M reviewed Kartik Spencer RN drug use no Kartik Spencer RN passive cigarette sm sandra exposure no Kartik Spencer RN In the past 3 months , have you been waking up wanting to use drugs? (CAGE substance use question #4) N Kartik Spencer RN In the past 3 months , have you felt guilty or bad about using drugs? (CAGE substance use question #3) N Kartik Spencer RN In the past 3 months , has anyone annoyed you by telling you to cut down or stop using drugs? (CAGE substance use question #2) N Kartik Spencer RN In the past 3 months , have you felt you should cut down or stop using drugs?(CAGE substance use question #1) N Kartik Spencer RN alcohol use, average drinks per day 1 /d Kartik Spencer RN smoking history, tot al pack/year 10 Kartik Spencer RN smoking, year quit 2007 Kartik hyde RN social history revie wed E&M reviewed Kartik Spencer RN smoking status former smoker Kartik Sevilla social history revie wed E&M reviewed Kartik Spencer RN social history revie wed E&M reviewed Kartik Spencer RN smoking/tobacco cess ation, patient education and counseling yes Joshua Quintero MD handedness R Handed Joshua mason MD social history revie wed E&M reviewed Kartik Spencer RN social history revie wed E&M reviewed Kartik Spencer RN social history revie wed E&M reviewed Kartik Spencer RN drug use none Joshua mason MD social history revie wed E&M reviewed Kartik Spencer RN social history revie wed E&M reviewed Kartik Spencer RN quit smoking, stage quit Kartik heredia RN social history revie wed E&M reviewed Kartik Spencer RN social history E&M Marital Statu s: L earlene with family/friends E thnicity: Kartik Spencer RN social history revie wed E&M reviewed Kartik Spencer RN caffeine use, averag e drinks per day yes LinkLogic alcohol use, average drinks per day none [employer]Log[employer] number of years as a smoker 10 years or more [employer]Logic smoking status Quit [employer]Logic FUNCTIONAL STATUS Date Observation Value Provider HRA, CV Assess/Plan, Angina (inactive) Management Plan continue current therapy Chela Heaton MD HRA, CV Assess/Plan, Angina (inactive) Management Plan continue current therapy Chela Heaton MD HRA, CV Assess/Plan, Angina (inactive) Management Plan continue current therapy Chela Heaton MD HRA, CV Assess/Plan, Angina (inactive) Management Plan continue current therapy Chela Heaton MD HRA, CV Assess/Plan, Angina (inactive) Management Plan continue current therapy Chela Heaton MD HRA, CV Assess/Plan, Angina (inactive) Management Plan continue current therapy Chela Heaton MD HRA, CV Assess/Plan, Angina (inactive) Management Plan continue current therapy Leonel Gomez HRA, CV Assess/Plan, Angina (inactive) Management Plan continue current therapy Chela Heaton MD HRA, CV Assess/Plan, Angina (inactive) Management Plan continue current therapy Chela Heaton MD HRA, CV Assess/Plan, Angina (inactive) Management Plan continue current therapy Chela Heaton MD HRA, CV Assess/Plan, Angina (inactive) Management Plan continue current therapy Chela Heaton MD HRA, CV Assess/Plan, Angina (inactive) Management Plan continue current therapy Chela Heaton MD HRA, CV Assess/Plan, Angina (inactive) Management Plan continue current therapy Chela Heaton MD HRA, CV Assess/Plan, Angina (inactive) Management Plan continue current therapy Chela Heaton MD HRA, CV Assess/Plan, Angina (inactive) Management Plan continue current therapy Cynthia Poole HRA, CV Assess/Plan, Angina (inactive) Management Plan continue current therapy Chela Heaton MD HRA, CV Assess/Plan, Angina (inactive) Management Plan continue current therapy Chela Heaton MD MENTAL STATUS Date Observation Value Provider assessment of judgme nt and insight E&M Alert and oriented to time, place and person. Mood and affect are normal. Kartik Spencer RN assessment of judgme nt and insight E&M Alert and oriented to time, place and person. Mood and affect are normal. Kartik Spencer RN assessment of judgme nt and insight E&M Alert and oriented to time, place and person. Mood and affect are normal. Rom Cohen MD assessment of judgme nt and insight E&M Alert and oriented to time, place and person. Mood and affect are normal. Kartik Spencer RN assessment of judgme nt and insight E&M Alert and oriented to time, place and person. Mood and affect are normal. Kartik Spencer RN assessment of judgme nt and insight E&M Alert and oriented to time, place and person. Mood and affect are normal. Kartik Spencer RN assessment of judgme nt and insight E&M Alert and oriented to time, place and person. Mood and affect are normal. Kartik Spencer RN assessment of judgme nt and insight E&M Alert and oriented to time, place and person. Mood and affect are normal. Kartik Spencer RN assessment of judgme nt and insight E&M Alert and oriented to time, place and person. Mood and affect are normal. Kartik Spencer RN assessment of judgme nt and insight E&M Alert and oriented to time, place and person. Mood and affect are normal. Kartik Spencer RN assessment of judgme nt and insight E&M Alert and oriented to time, place and person. Mood and affect are normal. Kartik Spencer RN assessment of judgme nt and insight E&M Alert and oriented to time, place and person. Mood and affect are normal. Kartik Spencer RN assessment of judgme nt and insight E&M Alert and oriented to time, place and person. Mood and affect are normal. Kartik Spencer RN assessment of judgme nt and insight E&M Alert and oriented to time, place and person. Mood and affect are normal. aKrtik Spencer RN FAMILY HISTORY Family Member Condition Mother Family History of Co ronary Artery Disease: Mother Family History of Co ngestive Heart Failure: INSURANCE PROVIDERS Payer name Policy type / Coverage type Michael red democrat [employer] HMO-POS HMO [id number] ADVANCE DIRECTIVES Name Date DISCUSSED - NO DECISION MADE TREATMENT PLAN Date Name Performer [id number],C, C ontinues on Atorvastatin. We aim for LDL <70. P carlos to have bloodwork done with PCP. Chela Heaton MD [id number],S, C hest pain free. Continues on ASA. Stress test was normal. Chela Heaton MD [id number],S, N o recurrence of arrhythmias. Continues on Metoprolol. Chela Heaton MD [id number],S, D enies of any claudication. Chela Heaotn MD [id number],Mary Ellen Garibay with patient about medication compliance and home BP monitoring. B P today: 156/81 P rior BP: 195/107 (05/24/2022) His updated medication list for this problem includes: Chlorthalidone 25 Mg Tablet (Chlorthalidone) ..... Take one-half tablet by mouth once daily Amlodipine 5 Mg Tablet (Amlodipine) ..... 1 tablet by mouth once a day Edarbi 80 Mg Tablet (Azilsartan medoxomil) ..... Take 1 tablet by mouth once a day take 1 tablet by mouth once daily Metoprolol Tartrate 25 Mg Tablet (Metoprolol tartrate) ..... Take 1 tablet by mouth twice daily Aspirin 325 Mg Tablet (Aspirin) ..... 1 tablet once a day Chela Heaton MD [id number],Mary Ellen Garibay with patient about medication compliance and home BP monitoring. B P today: 156/81 P rior BP: 195/107 (05/24/2022) Chela Heaton MD [id number],S, C hest pain free. Continues on ASA. Stress test was normal. Eduarda Alberto [id number],C, C hest pain free. Continues on ASA. Stress test was normal. Chela Heaton MD [id number],C, D enies of any claudication. Chela Heaton MD [id number],S, N o recurrence of arrhythmias. Continues on Metoprolol. Chela Heaton MD [id number],C,B P elevated today at 195/107. Advised reduced sodium intake and routine monitoring of the blood pressure. We aim for less than 130/80. Will try him on chlorthalidone 12.5 mg faye Heaton MD [id number],C, C ontinues on Atorvastatin. We aim for LDL <70. Chela Heaton MD [id number],S, C hest pain free. Continues on ASA. Will schedule a stress cardiolite to be done in 6 months as he has not had a stress test for many years. Odilon Blancas [id number],S, C ontinues on Atorvastatin. We aim for LDL <70. Most recent LDL 86 in 01/2021. We will request recent labwork from your office. Chela Heaton MD [id number],W, B P is elevated today. He does not monitor it at home. Will give him a home RPM cuff for home BP monitoring. D iscussion of benefits for remote patient monitoring took place. Patient gives consent for remote monitoring of physiologic parameters including, but not limited to, weight, blood pressure, pulse oximetry, respiratory flow rate. Chela Heaton MD [id number],S, N o recurrence of arrhythmias. Continues on Metoprolol. Chela Heaton MD [id number],W, B P is elevated today. He does not monitor it at home. Advised routine home monitoring. Chela Heaton MD [id number],S, C ontinues on Atorvastatin. We aim for LDL <70. Most recent LDL 86 01/2021. Chela Heaton MD [id number],S, D enies of any claudication. Chela Heaton MD [id number],S, C hest pain free. Continues on ASA. Chela Heaton MD [id number],C,B P is elevated, I advised him to monitor his BP at home, keep a log, before we adjust his medications. B P today: 164/100 P rior BP: 164/80 (07/14/2020) Labs Reviewed: C reat: 0.9 (05/19/2013) C hol: 145 (05/19/2013) HDL: 44 (05/19/2013) T (05/19/2013) Chela Heaton MD [id number],C, D enies of any claudication. Chela Heaton MD [id number],C, C hest pain free. Continues on ASA. Chela Heaton MD Cardiology:BP consis tently elevated, we discussed diuretics vs increasing Amlodipine to 10 mg, he expressed he already has frequent urination due to his prostate, will increase Amlodipine to 10 mg for better HTN control. Advised him to monitor for leg swelling while taking this. The following medications were removed from the medication list: Amlodipine 5 Mg Tablet (Amlodipine) ..... 1 tablet by mouth once a day His updated medication list for this problem includes: Amlodipine 10 Mg Tablet (Amlodipine) ..... 1 tablet by mouth once a day Edarbi 80 Mg Tablet (Azilsartan medoxomil) ..... Take 1 tablet by mouth daily Metoprolol Tartrate 25 Mg Tablet (Metoprolol tartrate) ..... Take 1 tablet by mouth twice daily Aspirin 325 Mg Tablet (Aspirin) ..... 1 tablet once a day Chela Heaton MD Cardiology: C hest pain free. Continues on ASA. 2021 stress test was normal. He is considering knee surgery in the future, will need to undergo stress test for risk assessment. T he following medications were removed from the medication list: Amlodipine 5 Mg Tablet (Amlodipine) ..... 1 tablet by mouth once a day His updated medication list for this problem includes: Amlodipine 10 Mg Tablet (Amlodipine) ..... 1 tablet by mouth once a day Metoprolol Tartrate 25 Mg Tablet (Metoprolol tartrate) ..... Take 1 tablet by mouth twice daily Aspirin 325 Mg Tablet (Aspirin) ..... 1 tablet once a day Chela Heaton MD Cardiology:Aim for L DL below 70 His updated medication list for this problem includes: Atorvastatin 20 Mg Tablet (Atorvastatin) ..... Take 1 tablet by mouth daily Chela Heaton MD Cardiology: B P today: 156/66 P rior BP: 144/78 (04/11/2023) His updated medication list for this problem includes: Edarbi 80 Mg Tablet (Azilsartan medoxomil) ..... Take 1 tablet by mouth once a day take 1 tablet by mouth once daily Metoprolol Tartrate 25 Mg Tablet (Metoprolol tartrate) ..... Take 1 tablet by mouth twice daily Amlodipine 5 Mg Tablet (Amlodipine) ..... 1 tablet by mouth once a day Aspirin 325 Mg Tablet (Aspirin) ..... 1 tablet once a day Chela Heaton MD Cardiology: D enies of any claudication or pain L ast DONELL in 2015, will repeat ABIs at next visit P t plans to start exercising in pool at gym Chela Heaton MD Cardiology: C hest pain free. Continues on ASA. 2021 stress test was normal. Chela Heaton MD Cardiology:No recurr ence of arrhythmias. Continues on Metoprolol. Chela Heaton MD Cardiology:Denies of any claudication or pain L ast DONELL in 2015, will repeat ABIs at next visit P t plans to start exercising in pool at gym Chela Heaton MD Cardiology:Continues on statin. Aim for LDL less than 70. We will obtain labs from 2 days ago with PCP. His updated medication list for this problem includes: Atorvastatin 20 Mg Tablet (Atorvastatin) ..... Take 1 tablet by mouth daily Chela Heaton MD Cardiology:He has no t been monitoring BP recently due to traveling. Spoke with patient regarding importance of home monitoring and medication compliance. Advised to hold off on Chlorthalidone due to starting Farxiga. BP today: 144/78 P rior BP: 156/81 (10/11/2022) His updated medication list for this problem includes: Edarbi 80 Mg Tablet (Azilsartan medoxomil) ..... Take 1 tablet by mouth once daily Metoprolol Tartrate 25 Mg Tablet (Metoprolol tartrate) ..... Take 1 tablet by mouth twice daily Amlodipine 5 Mg Tablet (Amlodipine) ..... 1 tablet by mouth once a day Aspirin 325 Mg Tablet (Aspirin) ..... 1 tablet once a day Chela Heaton MD Cardiology:Chest enrique n free. Continues on ASA. 2021 stress test was normal. Chela Heaton MD Cardiology: C ontinues on Atorvastatin. We aim for LDL <70. P carlos to have bloodwork done with PCP. Chela Heaton MD Cardiology: C hest pain free. Continues on ASA. Stress test was normal. Chela Heaton MD Cardiology: N o recurrence of arrhythmias. Continues on Metoprolol. Chela Heaton MD Cardiology: D enies of any claudication. Chela Heaton MD Cardiology:Spoke wit h patient about medication compliance and home BP monitoring. B P today: 156/81 P rior BP: 195/107 (05/24/2022) His updated medication list for this problem includes: Chlorthalidone 25 Mg Tablet (Chlorthalidone) ..... Take one-half tablet by mouth once daily Amlodipine 5 Mg Tablet (Amlodipine) ..... 1 tablet by mouth once a day Edarbi 80 Mg Tablet (Azilsartan medoxomil) ..... Take 1 tablet by mouth once a day take 1 tablet by mouth once daily Metoprolol Tartrate 25 Mg Tablet (Metoprolol tartrate) ..... Take 1 tablet by mouth twice daily Aspirin 325 Mg Tablet (Aspirin) ..... 1 tablet once a day Chela Heaton MD Cardiology:Spoke wit h patient about medication compliance and home BP monitoring. B P today: 156/81 P rior BP: 195/107 (05/24/2022) Chela Heaton MD Cardiology: C hest pain free. Continues on ASA. Stress test was normal. Eduarda Alberto Cardiology: C hest pain free. Continues on ASA. Stress test was normal. Chela Heaton MD Cardiology: D enies of any claudication. Chela Heaton MD Cardiology: N o recurrence of arrhythmias. Continues on Metoprolol. Chela Heaton MD Cardiology:BP elevat ed today at 195/107. Advised reduced sodium intake and routine monitoring of the blood pressure. We aim for less than 130/80. Will try him on chlorthalidone 12.5 mg yanny Chela Heaton MD Cardiology: C ontinues on Atorvastatin. We aim for LDL <70. Chela Heaton MD Cardiology: C hest pain free. Continues on ASA. Will schedule a stress cardiolite to be done in 6 months as he has not had a stress test for many years. Odilon Blancas Cardiology: C ontinues on Atorvastatin. We aim for LDL <70. Most recent LDL 86 in 01/2021. We will request recent labwork from your office. Chela Heaton MD Cardiology: B P is elevated today. He does not monitor it at home. Will give him a home RPM cuff for home BP monitoring. D iscussion of benefits for remote patient monitoring took place. Patient gives consent for remote monitoring of physiologic parameters including, but not limited to, weight, blood pressure, pulse oximetry, respiratory flow rate. Chela Heaton MD Cardiology: N o recurrence of arrhythmias. Continues on Metoprolol. Chela Heaton MD Cardiology: B P is elevated today. He does not monitor it at home. Advised routine home monitoring. Chela Heaton MD Cardiology: C ontinues on Atorvastatin. We aim for LDL <70. Most recent LDL 86 01/2021. Chela Heaton MD Cardiology: D enies of any claudication. Chela Heaton MD Cardiology: C hest pain free. Continues on ASA. Chela Heaton MD Cardiology follow up :BP is elevated, I advised him to monitor his BP at home, keep a log, before we adjust his medications. B P today: 164/100 P rior BP: 164/80 (07/14/2020) & #13;Labs Reviewed: C reat: 0.9 (05/19/2013) C hol: 145 (05/19/2013) HDL: 44 (05/19/2013) T (05/19/2013) Chela Heaton MD Cardiology follow up : D enies of any claudication. Chela Heaton MD Cardiology follow up : C hest pain free. Continues on ASA. Chela Heaton MD Cardiology :No recur rence of arrhythmias. Continues on Metoprolol. Chela Heaton MD Cardiology :Denies of any claudi cation. Chela Heaton MD Cardiology :Blood pr essure remains elevated. Unable to tolerate increased dose of beta ilda due to tiredness and fatigue. Will have him take an extra 40mg Edarbi as needed if blood pressure > 140 systolic. Advised reduced sodium intake and routine monitoring of the blood pressure. We aim for less than 130/80. Chela Heaton MD Cardiology :Chest pain free. Con tinues on ASA. Chela Heaton MD Cardiology :Continue s on Atorvastatin. We aim for LDL <70. Will request labs from your office. Chela Heaton MD Cardiology follow up :Continues on Atorvastatin. We aim for LDL <70. Leonel Cardiology follow up :No recurrence of arrhythmias. Cardiology follow up :Blood pressure elevated. Advised reduced sodium intake and weight loss. Cardiology follow up :Denies of any claudication. Leonel Cardiology follow up :Chest pain free. Continues on ASA. Leonel Cardiology:Continues on Atorvastatin. We aim for LDL <70. Will request labs from PCP. Chela Heaton MD Cardiology:No recurrence of arrh ythmias. Chela Heaton MD Cardiology:Blood pre ssure elevated today likely due to steroid treatment. Advised to increase Metoprolol Tartrate to 50mg BID for a week and monitor his blood pressure. We aim for less than 130/80. Chela Heaton MD Cardiology:Denies of any claudication. Chela Haeton MD Cardiology:Chest enrique n free. Continues on ASA. We arrange echocardiogram. Chela Heaton MD Cardiology follow up : C ontrolled on Edarbi and metoprolol. Chela Heaton MD Cardiology follow up : N o recurrence of arrhythmias. Chela Heaton MD Cardiology follow up : D enies of any claudication. Chela Heaton MD Cardiology follow up : C ontrolled on Edarbi. Chela Heaton MD Cardiology follow up : C hest pain free. Continues on ASA. We will get an echo at the next OV. Chela Heaton MD Cardiology follow up : C ontinues on Lipitor 20mg daily. Chela Heaton MD Cardiology:Controlle d on Edarbi. Chela Heaton MD Cardiology:Continues on Lipitor 20mg daily. He needs a repeat lipid panel. Chela Heaton MD Cardiology:Chest pain free. Cont inues on ASA. Chela Heaton MD Cardiology:No recurrence of arrh ythmias. Chela Heaton MD Cardiology:Blood pre ssure control is satisfactory. He will continue on Edarbi 80 mg daily and Metoprolol Tartrate 25mg BID. Chela Heaton MD Cardiology:No recurrence. Gillian Heaton MD Cardiology:Denies of any claudic ation. Chela Heaton MD Cardiology:Blood pre ssure control remains remarkably well. Continues on Metoprolol and Edarby. Chela Heaton MD Cardiology:No chest pain. Effort tolerance stable. Continues on ASA. Chela Heaton MD Cardiology followup :No recurren ce of symptoms. Chela Heaton MD Cardiology followup :On Lipitor. Chela Heaton MD Cardiology followup :No chest pain. Effort tolerance is stable. Continues on ASA. Chela Heaton MD Cardiology followup :Denies of a ny claudication. Chela Heaton MD Cardiology followup :BP control seems to be satisfactory. He has tolerated Edarbi. He will continue with Metoprolol as well for his BP control. Chela Heaton MD Cardiology Follow up :Stable. Remi Heaton MD Cardiology Follow up Chela figueroa MD Cardiology Follow up :Nausea, dizziness, and headaches since starting Losartan. As he has been symptomatic and it has affected his day to day activities, we have discontinued the losartan and started Edarbi 80mg daily. Hopefully his blood pressure control improves and his symptoms resolve. Chela Heaton MD Cardiology Follow up Chela figueroa MD Cardiology Follow up :Asymptomatic. Denies claudication. 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 Chela Heaton MD Cardiology Follow up :No further recurrence on metoprolol. If he has another recurrence, he would benefit from EP study. Chela Heaton MD Cardiology Follow up :Blood pressure is elevated today at 148/90. Will start him on Bidil one half tablet twice daily. He is advised to check his blood pressure every morning. Chela Heaton MD Cardiology Follow up :Chest pain free. Effort tolerance stable. Recent stress test shows normal perfusion. Continues on ASA. Chela Heaton MD Cardiology:Blood pre ssure is elevated today at 148/90. Will start him on Bidil one half tablet twice daily. He is advised to check his blood pressure every morning. Chela Heaton MD Cardiology:Recurrenc e of palpitations and dizziness that may represent SVT. Will arrange a telesentry monitor. Chela Heaton MD Cardiology:Asymptoma tic. Denies claudication. 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 Chela Heaton MD Cardiology:Chest enrique n free. Effort tolerance stable. Continues on aspirin. With patient's recent recurrence of palpitations and known CAD, will arrange exercise stress myoview. Chela Heaton MD Cardiology Chela Ladd Cardiology:Continues on Lipitor. Chela Heaton MD Cardiology:His systo lic BP is elevated today. He will continue to check his BP. He continues on Diovan. Chela Heaton MD Cardiology:Continues on Atorvast atin. Chela Heaton MD Cardiology:He denies any palpita tions. Chela Heaton MD Cardiology:No chest pain. Contin ues on ASA. Chela Heaton MD Cardiology:He denies of any claudication but he has not been very active during the winter. Chela Heaton MD Cardiology:Denies of claudication. Able to walk a few blocks without having any symptoms. His ABIs done at the last visit were consistent with severe disease. As he is symptomatic, he will continue to walk. He also has an appointment to see Dr. Mcdonald in the next few months. Chela Heaton MD Cardiology:Denies of chest pain. Continues on aspirin. Effort tolerance remains satisfactory. Chela Heaton MD Cardiology:Blood pre ssure today was elevated. He continues on Diovan. He will continue to check his blood pressure on a regular basis. Chela Heaton MD Cardiology:On Lipito r. He is due for a blood test at your office. Please send us the results. Chela Heaton MD hos follow up: H is updated medication list for this problem includes: Aspirin 325 Mg Tabs (Aspirin) ..... 1 tab daily Orders: E KG (CPT-96783) Chela Heaton MD hos follow up: H is updated medication list for this problem includes: Lipitor 20 Mg Tabs (Atorvastatin calcium) ..... One tab. daily Aspirin 325 Mg Tabs (Aspirin) ..... 1 tab daily Orders: E KG (CPT-54336) Chela Heaton MD hos follow up Chela Ladd hos follow up Chela Ladd hos follow up: H is updated medication list for this problem includes: Lipitor 20 Mg Tabs (Atorvastatin calcium) ..... One tab. daily Chela Heaton MD hos follow up: H is updated medication list for this problem includes: Diovan 320 Mg Tabs (Valsartan) ..... One tab. daily Aspirin 325 Mg Tabs (Aspirin) ..... 1 tab daily Chela Heaton MD hos follow up: H is updated medication list for this problem includes: Aspirin 325 Mg Tabs (Aspirin) ..... 1 tab daily Chela Heaton MD hos follow up: H is updated medication list for this problem includes: Lipitor 20 Mg Tabs (Atorvastatin calcium) ..... One tab. daily Aspirin 325 Mg Tabs (Aspirin) ..... 1 tab daily Chela Heaton MD follow up Chela Ladd follow up Chela Ladd follow up: H is updated medication list for this problem includes: Diovan 320 Mg Tabs (Valsartan) ..... One tab. daily Aspirin 325 Mg Tabs (Aspirin) ..... 1 tab daily Chela Heaton MD follow up Chela Ladd follow up: H is updated medication list for this problem includes: Lipitor 20 Mg Tabs (Atorvastatin calcium) ..... One tab. daily Aspirin 325 Mg Tabs (Aspirin) ..... 1 tab daily Chela Heaton MD Follow up : H is updated medication list for this problem includes: Lipitor 20 Mg Tabs (Atorvastatin calcium) ..... One tab. daily Orders: A rterial Duplex Bi-Lower EX (CPT-53989) A rterial - SENSILASE (CPT-62620) hCela Heaton MD Follow up : H is updated medication list for this problem includes: Aspirin 325 Mg Tabs (Aspirin) ..... 1 tab daily Orders: A rterial Duplex Bi-Lower EX (CPT-49553) A rterial - SENSILASE (CPT-81995) Chela Heaton MD Follow up : O rders: A rterial Duplex Bi-Lower EX (CPT-50321) A rterial - SENSILASE (CPT-19229) Chela Heaton MD Follow up : H is updated medication list for this problem includes: Diovan 320 Mg Tabs (Valsartan) ..... One tab. daily Aspirin 325 Mg Tabs (Aspirin) ..... 1 tab daily Orders: Arterial Duplex Bi-Lower EX (CPT-22049) A rterial - SENSILASE (CPT-93801) BP today: 140/90 P rior BP: 148/88 (06/10/2014) Labs Reviewed: C reat: 0.9 (05/19/2013) C hol: 145 (05/19/2013) HDL: 44 (05/19/2013) LDL: 84 (05/19/2013) T (05/19/2013) Chela Heaton MD Follow up : O rders: A rterial Duplex Bi-Lower EX (CPT-13322) A rterial - SENSILASE (CPT-62781) Chela Heaton MD Follow up : H is updated medication list for this problem includes: Lipitor 20 Mg Tabs (Atorvastatin calcium) ..... One tab. daily Aspirin 325 Mg Tabs (Aspirin) ..... 1 tab daily & #13;Orders: E KG (CPT-29815) A rterial Duplex Bi-Lower EX (CPT-68942) A rterial - SENSILASE (CPT-25555) Chela Heaton MD follow up Chela Ladd follow up Chela Ladd follow up: H is updated medication list for this problem includes: Lipitor 20 Mg Tabs (Atorvastatin calcium) ..... One tab. daily Chela Heaton MD follow up: H is updated medication list for this problem includes: Diovan 320 Mg Tabs (Valsartan) ..... One tab. daily Aspirin 325 Mg Tabs (Aspirin) ..... 1 tab daily Chela Heaton MD follow up: H is updated medication list for this problem includes: Lipitor 20 Mg Tabs (Atorvastatin calcium) ..... One tab. daily Aspirin 325 Mg Tabs (Aspirin) ..... 1 tab daily Chela Heaton MD follow up: H is updated medication list for this problem includes: Lipitor 20 Mg Tabs (Atorvastatin calcium) ..... One tab. daily Aspirin 325 Mg Tabs (Aspirin) ..... 1 tab daily BP today: 144/73 Prior BP: 138/72 (12/26/2012) N uclear Stress Findings: 1. Abormal Tanner protocol exercise tolerance test with ischemic ST segment response. 2 . Normal left ventricular size and function with a calculated ejection fraction of 46%. 3 . Myocardial scintigraphy demonstrates lateral wall ischemia. GC (01/26/2011) C ardiac Cath: 1. Single-vessel coronary artery disease as described above. 2 . Hyperdynamic left ventricle with an ejection fraction of 75%. 3 . Angiographically normal renal arteries. 4 . Right superficial femoral artery stenosis. R ECOMMENDATION : PCI of the LAD following this procedure. [facility] (02/01/2011) C HOL: 142 (03/26/2012) LDL: 86 (03/26/2012) Hgb: 13.4 (01/04/2012) HCT: 40.7 (11/01/2012) Platelets: 221 (11/01/2012) R BC: 4.56 (01/04/2012) WBC: 5.9 (01/04/2012) B UN: 18 (01/04/2012) Creat: 1.08 (11/01/2012) Glucose: 117 (01/04/2012) N a+: 144 (11/01/2012) K+: 4.4 (11/01/2012) Cl: 108 (01/04/2012) PT: 10.7 (01/04/2012) INR: 1.0 (11/01/2012) Rom Cohen MD follow up Rom Cohen MD follow up: H is updated medication list for this problem includes: Aspirin 325 Mg Tabs (Aspirin) ..... 1 tab daily BP today: 144/73 Prior BP: 138/72 (12/26/2012) N uclear Stress Findings: 1. Abormal Tanner protocol exercise tolerance test with ischemic ST segment response. 2 . Normal left ventricular size and function with a calculated ejection fraction of 46%. 3 . Myocardial scintigraphy demonstrates lateral wall ischemia. (01/26/2011) C ardiac Cath: 1. Single-vessel coronary artery disease as described above. 2 . Hyperdynamic left ventricle with an ejection fraction of 75%. 3 . Angiographically normal renal arteries. 4 . Right superficial femoral artery stenosis. R ECOMMENDATION : PCI of the LAD following this procedure. [facility] (02/01/2011) C HOL: 142 (03/26/2012) LDL: 86 (03/26/2012) Hgb: 13.4 (01/04/2012) HCT: 40.7 (11/01/2012) Platelets: 221 (11/01/2012) R BC: 4.56 (01/04/2012) WBC: 5.9 (01/04/2012) B UN: 18 (01/04/2012) Creat: 1.08 (11/01/2012) Glucose: 117 (01/04/2012) N a+: 144 (11/01/2012) K+: 4.4 (11/01/2012) Cl: 108 (01/04/2012) PT: 10.7 (01/04/2012) INR: 1.0 (11/01/2012) Rom Cohen MD hospital follow up Rom Cohen MD hospital follow up:P minnie adjust cholesterol medication to keep LDL less than 70 and HDL greater than 50 H is updated medication list for this problem includes: Lipitor 20 Mg Tabs (Atorvastatin calcium) ..... One tab. daily Rom Cohen MD hospital follow up: H is updated medication list for this problem includes: Lipitor 20 Mg Tabs (Atorvastatin calcium) ..... One tab. daily Aspirin 325 Mg Tabs (Aspirin) ..... 1 tab daily Rom Cohen MD hospital follow up: O rders: A rterial Duplex Bi-Lower EX (CPT-88068) Rom Cohen MD routine: H is updated medication list for this problem includes: Lipitor 10 Mg Tabs (Atorvastatin calcium) ..... One tab. daily BP today: 131/83 Prior BP: / () Orders: C natilete Echo (CPT-13939) Chela Heaton MD routine: H is updated medication list for this problem includes: Diovan 320 Mg Tabs (Valsartan) ..... One tab. daily BP today: 131/83 Orders: C jad Echo (CPT-09799) Chela Heaton MD Date Name IRON AND TOTAL IRON BINDING CAPACITY FERRITIN CBC (INCLUDES DIFF/P LT) HEMOGLOBIN A1c LIPID PANEL COMPREHENSIVE METABO LIC PANEL, W/EGFR Arterial Duplex Bi-L ower EX Complete Echo Stress Exercise Card iolite RPM (remote patient monitoring) TSH, free T4, total T3 IRON AND TOTAL IRON BINDING CAPACITY FERRITIN CBC (INCLUDES DIFF/P LT) HEMOGLOBIN A1c LIPID PANEL COMPREHENSIVE METABO LIC PANEL, W/EGFR Complete Echo STR - Nuclear Mobile Cardiac Tele Arterial - SENSILASE Arterial Duplex Bi-L ower EX AIF - WCHA Arterial Duplex Bi-L ower EX Complete Echo Arterial Duplex Bi-L ower EX COMPREHENSIVE METABO LIC PANEL W/EGFR LIPID PANEL Arterial Duplex Bi-L ower EX Holter Monitor 24 Hr Complete Echo HISTORY OF PROCEDURES Procedure Date Procedure Name Provider Procedure Notes S tatus Complex e/m visit add on Chela Heaton MD completed EKG Chela Heaton MD complet ed EKG Chela Heaton MD complet ed EKG Chela Heaton MD complet ed EKG Chela Heaton MD complet ed EKG Chela Heaton MD complet ed EKG Chela Heaton MD complet ed EKG Chela Heaton MD complet ed EKG Chela Heaton MD complet ed EKG Chela Heaton MD complet ed EKG Chela Heaton MD complet ed EKG Chela Heaton MD complet ed EKG Chela Heaton MD complet ed EKG Chela Heaton MD complet ed EKG Chela Heaton MD complet ed EKG Chela Heaton MD complet ed Stress EKG Loy Gibbons MD completed Cardiolite, 2 units Chela Heaton MD completed SPECT Images Chela Heaton MD compl eted Event Monitor Chela Heaton MD comp leted EKG Chela Heaton MD complet ed SNOMED-CT: 937934509310882 Current Medications Documented Chela Heaton MD completed EKG Chela Heaton MD complet ed SNOMED-CT: 813886950680254 Current Medications Documented Chela Heaton MD completed SNOMED-CT: 407203316 Smoking Cessation Counseling Chela Heaton MD completed SNOMED-CT: 75601586 Physical Exam, Performed: Pulse Exam of Foot Chela Heaton MD completed EKG Chela Heaton MD complet ed SNOMED-CT: 372942420408211 Current Medications Documented Chela Heaton MD completed EKG Chela Heaton MD complet ed EKG Chela Heaton MD complet ed EKG Chela Heaton MD complet ed EKG Chela Heaton MD complet ed EKG Chela Heaton MD complet ed EKG Chela Heaton MD complet ed EKG Rom Cohen MD completed EKG Chela Heaton MD complet ed Schedule Followup Joshua stallings MD in 2 months ( stop amiodarone in 1 month) completed EKG Joshua hyde MD completed EKG Chela Heaton MD complet ed EKG Chela Heaton MD complet ed EKG Chela Heaton MD complet ed
== END 2024-07-15 13:29 | disposition home or self-care (01) ==
PROVIDERS: PCP Internal Medicine; Visit Provider Urology
DX: C61 Malignant neoplasm of prostate (principal)
CPT/HCPCS: 78815; A9596

== ENCOUNTER 2024-08-13 09:08 | Emergency (ER) | payer OTHER, SELFPAY ==
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
[2024-08-13 09:21] VITALS: BP 143/86; PULSE 51; RESP 16; TEMP 36.2; O2SAT 98
== END 2024-08-13 10:30 | disposition home or self-care (01) ==
PROVIDERS: Emergency Provider Nurse Practitioner; PCP Internal Medicine
DX: M54.2 Cervicalgia (principal); Z87.891 Personal history of nicotine dependence; I10 Essential (primary) hypertension; E78.00 Pure hypercholesterolemia, unspecified; K21.9 Gastro-esophageal reflux disease without esophagitis; M19.90 Unspecified osteoarthritis, unspecified site; Z86.16 Personal history of COVID-19
CPT/HCPCS: 72040; 99213; G0463

== ENCOUNTER 2025-02-16 14:15 | Emergency (ER) | payer MEDICARE, SELFPAY ==
[2025-02-16 14:24] VITALS: BP 128/67; PULSE 62; RESP 16; TEMP 36.7; O2SAT 95
--- NOTE | 2025-02-16 14:49 | ED.HA ---
HPI - Headache General Chief Complaint: Headache Stated Complaint: Nausea/Headache Time Seen by Provider: 02/16/25 14:18 Source: patient Mode of arrival: ambulatory Limitations: no limitations History of Present Illness HPI Narrative: Patient is 74 year old male that presents with 5 days of intermittent frontal headache,, congestion, head fullness, chills, body aches and nausea. Patient states symptoms improved slightly over the weekend but he just laid in bed. Reports Tylenol helps slightly. Denies any vision changes, dizziness, numbness, tingling or weakness to extremities. Related Data Home Medications ?Medication ?Instructions ?Recorded ?Confirmed ?Last Taken ?Type amlodipine 5 mg tablet 5 mg PO DAILY 03/16/23 08/13/24 06/01/23 History aspirin 325 mg capsule 325 mg PO DAILY 03/16/23 08/13/24 06/01/23 History atorvastatin 20 mg tablet 20 mg PO DAILY 03/16/23 08/13/24 06/01/23 History azilsartan medoxomil 80 mg tablet 80 mg PO DAILY 03/16/23 08/13/24 06/01/23 History (Edarbi) chlorthalidone 25 mg tablet 25 mg PO DAILY 03/16/23 08/13/24 06/01/23 History metoprolol tartrate 25 mg tablet 25 mg PO BID 03/16/23 08/13/24 06/01/23 History dapagliflozin propanediol 10 mg 10 mg PO DAILY 08/13/24 08/13/24 Unknown History tablet (Farxiga) Allergies Allergy/AdvReac Type Severity Reaction Status Date / Time iodine Allergy Unknown Rash Verified 02/16/25 14:28 codeine AdvReac Mild Nausea and Verified 02/16/25 14:28 Vomiting Review of Systems Review of Systems: All systems reviewed & are unremarkable except as noted in HPI and below Constitutional: Constitutional: Reports chills, Reports fatigue, Denies fever(s), Reports headache(s), Denies malaise and Denies weakness Eyes: Eyes: Denies blurry vision, Denies itchy eyes and Denies loss of vision ENT: Denies otalgia, Reports headache(s), Reports nasal congestion, Denies sinus pain, Reports sinus pressure and Denies sore throat Cardiovascular: Cardiovascular: Denies chest pain, Denies irregular heart rhythm and Denies dyspnea Respiratory: Respiratory: Denies cough and Denies dyspnea Gastrointestinal: Gastrointestinal: Denies abdominal pain, Denies diarrhea, Denies nausea and Denies vomiting Musculoskeletal: Musculoskeletal: Denies back pain, Reports myalgias and Denies arthralgias Integumentary/Breasts: Skin/Breast: Denies pruritus and Denies rash Neurologic: Denies headache(s), Denies loss of vision and Denies weakness Psychiatric: Psychiatric: Reports no additional psychiatric complaints Endocrine: Endocrine: Denies fatigue Allergic/Immunologic: Allergic/Immunologic: Denies itchy eyes PMFSH Social History Social History Smoking packs per day: 1 Smoking cigarettes per day: 20.0 Years smoked: 20 Smoking pack-years: 20.00 Smoking status: Former smoker Tobacco type: cigarettes Alcohol intake: current Drinks per week: 1 Alcohol use details: Social, rare Substance use: never Substance use type: does not use Living arrangements: with family Gender identity (if verbalized by the patient): Male Spiritual care concerns: No Comments At time of signature, agree with nursing past medical, surgical, social and family history. There is no relevant family history pertinent to the presenting complaint. Exam Const: General: cooperative, healthy appearing, comfortable, no acute distress and well nourished Nutritional Appearance: well nourished Orientation/consciousness: patient oriented x3 Limitations: no limitations HENMT: Head: normal to inspection, normocephalic and atraumatic Ears: hearing grossly normal bilaterally, external ears normal, TM's normal bilaterally, EAC's normal and no periauricular adenopathy Face/Nose/Sinus: Normal external nose present, Abnormal mucous membranes and turbinates present erythematous bilateral and diffuse, normal facial exam, face symmetric and Facial tenderness on exam of face and sinuses Face and sinus: normal facial exam and face symmetric Mouth: Yes Normal oral and palatal mucosa present, Yes lip normal, Yes tongue normal, Yes Normal salivary glands and ducts present, Yes oropharynx normal and Yes moist mucous membranes Teeth and gingiva: dentition normal Throat: posterior oropharynx normal, tonsils normal and uvula midline Eyes: General: appearance normal, both eyes and all related structures Alignment and Position: alignment normal and position normal Periorbital: periorbital findings normal Eyelids: eyelids normal Pupils: Equal, round and reactive pupils present Neck: Neck: normal visual inspection, full ROM, no lymphadenopathy and supple Chest: Chest palpation & inspection: normal inspection of the chest and normal palpation of entire chest wall Resp: Effort & Inspection: normal respiratory effort and able to speak in complete sentences Auscultation: clear to auscultation bilaterally, no crackles, no rales, no rhonchi and no wheezes Cardio: Rate: regular rate Rhythm: regular rhythm Heart sounds: S1 normal heart sound present and S2 normal heart sound present GI: Inspection: normal to inspection Skin: General skin exam: normal color and no rashes or lesions noted Neuro: General: patient oriented x3 and moves all extremities Cranial nerves: Yes Equal, round and reactive pupils present Speech: normal speech Gait exam (Neuro): Normal gait present Extrem: General: normal to inspection, full ROM and no edema Psych: Appearance: grossly normal and well kempt Mental Status: mental status grossly normal Speech and movement: Normal speech and movement present Affect: normal affect Attitude: cooperative Thought process: Normal thought process present Course Course Emergency Course: Discharge instructions reviewed with patient, as well as provided in writing per nursing staff. The instructions also include specific and strict return/GO TO THE ER as well as f/u information. All questions have been answered, and the patient deny any further questions with discharge and discharge plan. Portions of this record may have been created with voice recognition software Level of Care: Express Care Visit Vital Signs Vital signs: Vital Signs Temperature 36.7 C 02/16/25 14:24 Pulse Rate 62 02/16/25 14:24 Respiratory Rate 16 02/16/25 14:24 Blood Pressure 128/67 02/16/25 14:24 Pulse Oximetry 95 02/16/25 14:24 Oxygen Delivery Room Air 02/16/25 14:24 Temperature 36.7 C 02/16/25 14:24 Pulse Rate 62 02/16/25 14:24 Respiratory Rate 16 02/16/25 14:24 Blood Pressure 128/67 02/16/25 14:24 Pulse Oximetry 95 02/16/25 14:24 Oxygen Delivery Room Air 02/16/25 14:24 Reviewed MDM - Headache MDM Narrative Medical decision making narrative: Pt well hydrated appearing, in no respiratory distress, hemodynamically stable. Recommend supportive care. The patient is stable at time of discharge the clinical impression was discussed and the patient was given the opportunity to ask questions, which were addressed as completely as possible given the information available at present. Anticipatory guidance and return to care precautions were discussed and the importance of primary care follow-up was stressed and encouraged. The patient voiced understanding of the plan, indications to return, and the need for follow-up. Exam findings show no acute concerns or changes Patient is appropriate for outpatient treatment and follow-up. Differential diagnosis considered: Rowell virus, strep pharyngitis, allergic rhinitis, upper respiratory tract infection, sinusitis, rhinosinusitis, nasopharyngitis. viral pharyngitis, otitis media, otitis externa, otitis effusion, foreign body, cerumen impaction, viral syndrome, and influenza.? Differential Diagnosis Differential diagnosis: Likely headache Medical Records Attestation: I reviewed the patient's medical records. Lab Data Attestation: I reviewed the patient's lab results. Labs: Lab Results 02/16/25 Range/Units 14:30 POC Influenza A Ag Negative (Negative) POC Influenza B Ag Negative (Negative) POC SARS CoV-2 Ag Negative (Negative) Discharge Plan Discharge Clinical Impression: Sinusitis Qualifiers: Sinusitis location: frontal Chronicity: acute Recurrence: non-recurrent Qualified Code(s): J01.10 - Acute frontal sinusitis, unspecified Patient Disposition: Home Condition: Stable Instructions: Sinusitis (ED) Additional Instructions: Symptomatic treatment of a sinus infection aims to relieve symptoms. These treatments do not shorten the duration of illness. For pain, you may take: Tylenol 650-1000mg by mouth every 4-6 hours. Do not exceed 4000mg in 24 hours. Advil (Ibuprofen) 600 mg by mouth every 6 hours. Do not exceed 2400mg in 24 hours. 8 AM: Tylenol 11 AM: Ibuprofen 2 PM: Tylenol 5 PM: Ibuprofen 8 PM: Tylenol 11 PM: Ibuprofen 2 AM: Tylenol 5 AM: Ibuprofen Flushing the nose and sinuses with a saline solution several times per day has been proven to decrease pain associated with congestion and shorten the duration of symptoms. Nasal steroids (such as Flonase, 2 sprays in each nostril daily) can help to reduce swelling inside the nose, usually within two to three days. These drugs have few side effects and relieve symptoms in most people. Oral decongestants (pseudoephedrine and phenylephrine) may be helpful if you have associated symptoms of ear pain or fullness. Nasal decongestant sprays, including oxymetazoline (Afrin) and phenylephrine (Eldon-Synephrine), can be used to temporarily treat congestion. However, these sprays should not be used for more than two to three days due to the risk of rebound congestion (when the nose becomes congested constantly unless the medication is used repeatedly), possible addiction, and long-term consequences of frequent use, including persistent nasal dryness and crusting, which is very difficult to treat once it has developed. Medications to thin secretions (such as guaifenesin) may help to clear mucus. Please follow-up with your primary care doctor in the next 1-2 days. If you cannot follow-up with your primary care doctor please go to the ED for any urgent issues. If you have any worsening of symptoms or any other concerns please go to the ED immediately. Patient Language: Serbian Prescriptions: New fluticasone propionate [Flonase Allergy Relief] 50 mcg/actuation spray,suspension 1 spray intranasal DAILY Qty: 16 0RF Rx Instructions: administer into each nostril amoxicillin-pot clavulanate 875-125 mg tablet 1 tablet PO Q12H 10 Days Qty: 20 0RF No Action dapagliflozin propanediol [Farxiga] 10 mg tablet 10 mg PO DAILY cyclobenzaprine 10 mg tablet 10 mg PO TID PRN (Reason: muscle spasm) Qty: 20 0RF ibuprofen 800 mg tablet 800 mg PO Q6H PRN (Reason: pain) Qty: 30 0RF atorvastatin 20 mg tablet 20 mg PO DAILY chlorthalidone 25 mg tablet 25 mg PO DAILY amlodipine 5 mg tablet 5 mg PO DAILY metoprolol tartrate 25 mg tablet 25 mg PO BID Edarbi 80 mg tablet 80 mg PO DAILY aspirin 325 mg Capsule 325 mg PO DAILY Follow-up/Referrals: Veronica,Nish Hinojosa MD [Primary Care Provider, Unknown] - 3 Days Time of Disposition: 15:11
[2025-02-16 14:51] LABS: EDCOVIDSCREEN Negative (Negative); EDINFLUASCREEN Negative (Negative); EDINFLUBSCREEN Negative (Negative)
== END 2025-02-16 15:16 | disposition home or self-care (01) ==
PROVIDERS: Emergency Provider Nurse Practitioner Family; PCP Internal Medicine
DX: J01.10 Acute frontal sinusitis, unspecified (principal); Z20.822 Contact with and (suspected) exposure to COVID-19; Z87.891 Personal history of nicotine dependence; I10 Essential (primary) hypertension; E78.00 Pure hypercholesterolemia, unspecified; K21.9 Gastro-esophageal reflux disease without esophagitis; M19.90 Unspecified osteoarthritis, unspecified site; Z85.46 Personal history of malignant neoplasm of prostate
CPT/HCPCS: 87426; 87804; 99213; G0463